=== PATIENT | female | born 1945 | race Caucasian/White ===

== ENCOUNTER 2016-08-17 11:51 | Observation (INO) | payer MEDICARE ==
[2016-08-17] MEDS ORDERED: Aspirin Low Dose CHEW TAB* 81 MG PO ONE (12:29)
[2016-08-17 12:47] LABS: Hematocrit 34 % (35-47); Hemoglobin 11.6 g/dl (12.0-16.0); Mean Corpuscular HGB Conc 34 g/dl (31-36); Mean Corpuscular Hemoglobin 28 pg (27-31); Mean Corpuscular Volume 83 fL (80-97); Mean Platelet Volume 8 um3 (7.4-10.4); Red Blood Count 4.14 10^6/ul (4.0-5.4); Red Cell Distribution Width 14 % (10.5-15); White Blood Count 8.6 10^3/ul (3.5-10.8)
--- NOTE | 2016-08-17 12:59 | RAD ---
HISTORY: Left arm numbness COMPARISONS: None TECHNIQUE: Multiple contiguous axial CT scans were obtained of the head without intravenous contrast. FINDINGS: HEMORRHAGE/INFARCT: There is no hemorrhage or acute infarct. MASSES/SHIFT: There is no mass or shift. EXTRA-AXIAL SPACES: There are no extra-axial fluid collections. SULCI AND VENTRICLES: The sulci and ventricles are normal in size and position for the patient's stated age. CEREBRUM: There is hypoattenuation of the periventricular and subcortical white matter. BRAINSTEM: There are no focal parenchymal abnormalities. CEREBELLUM: There are no focal parenchymal abnormalities. VESSELS: The vessels are grossly normal. PARANASAL SINUSES: The paranasal sinuses are clear. ORBITS: The orbits are unremarkable. BONES AND SOFT TISSUE: No bone or soft tissue abnormalities are noted. OTHER: None IMPRESSION: NO ACUTE INTRACRANIAL PATHOLOGY. CHRONIC SMALL VESSEL ISCHEMIC CHANGES.
[2016-08-17 13:00] LABS: Albumin 4.2 g/dL (3.2-5.2); BUN/Creatinine Ratio 18.9 (8-20); Calcium 9.6 mg/dL (8.6-10.3); EGFR African American 79.4 (>60); EGFR Non-African American 61.7 (>60); Globulin 3.4 g/dL (2-4); Total Bilirubin 0.3 mg/dL (0.2-1.0); Total Protein 7.6 g/dL (6.4-8.9)
[2016-08-17 13:01] LABS: Troponin I 0.01 ng/mL (<0.04)
[2016-08-17 13:05] LABS: Potassium 3.7 mmol/L (3.5-5.0)
--- NOTE | 2016-08-17 13:16 | RAD ---
HISTORY: Chest pain COMPARISONS: May 31, 2008 VIEWS: Single frontal dual-energy view of the chest FINDINGS: CARDIOMEDIASTINAL SILHOUETTE: The cardiomediastinal silhouette is normal. JOSE MARTIN: The jose martin are normal. PLEURA: The costophrenic angles are sharp. No pleural abnormalities are noted. LUNG PARENCHYMA: The lungs are clear. ABDOMEN: The upper abdomen is clear. There is no subphrenic gas. BONES AND SOFT TISSUES: No bone or soft tissue abnormalities are noted. OTHER: None. IMPRESSION: NO ACTIVE CARDIOPULMONARY DISEASE.
[2016-08-17] MEDS ORDERED: Iohexol 350* (CONTRAST) 500 ML MDV IV ONE (14:21)
--- NOTE | 2016-08-17 15:26 | RAD ---
HISTORY: Left arm weakness COMPARISONS: Head CT dated August 17, 2016 TECHNIQUE: Multiple contiguous axial CT scans were obtained of the head and neck After the administration of nonionic intravenous contrast timed to the systemic arterial phase of contrast enhancement. Coronal and sagittal multiplanar reformations are submitted for review. Multiple 3-D maximum intensity projection reconstructions are also submitted for review. FINDINGS: CTA NECK: AORTIC ARCH: There is calcific atherosclerotic disease of the aortic arch, without ostial or proximal stenosis of the cephalic great vessels. There is a normal three-vessel branching pattern. RIGHT VERTEBRAL ARTERY: The right vertebral artery is patent along its course, without stenosis. LEFT VERTEBRAL ARTERY: The left vertebral artery is patent along its course, without stenosis. DOMINANCE: The vertebral arteries are codominant. RIGHT COMMON CAROTID ARTERY: The right common carotid artery is patent. The right carotid bifurcation occurs at C4-C5 RIGHT INTERNAL CAROTID ARTERY: There is no right internal carotid artery stenosis by NASCET criteria. RIGHT EXTERNAL CAROTID ARTERY: The right external carotid artery is unremarkable. LEFT COMMON CAROTID ARTERY: The left common carotid artery is patent. The left carotid bifurcation occurs at C5-C6 LEFT INTERNAL CAROTID ARTERY: There is no left internal carotid artery stenosis by NASCET criteria. LEFT EXTERNAL CAROTID ARTERY: The left external carotid artery is unremarkable. VENOUS CIRCULATION: The venous system is unremarkable. SALIVARY GLANDS: The parotid glands, submandibular glands, sublingual glands are normal. NASAL CAVITY/NASOPHARYNX: The nasal cavity and nasopharynx are normal. ORAL CAVITY/OROPHARYNX: The oral cavity and oropharynx are unremarkable. LARYNGEAL APPARATUS/HYPOPHARYNX: The laryngeal apparatus and hypopharynx are normal. UPPER AIRWAY/UPPER ESOPHAGUS: The visualized upper airway and esophagus are normal. LUNG APICES: The lung apices are clear. THYROID GLAND: The thyroid gland is heterogeneous LYMPH NODES: There is no lymphadenopathy by size criteria. BONES AND SOFT TISSUES: Degenerative changes are noted along the spine. CTA HEAD: INTRACRANIAL CIRCULATION: There is no aneurysm, vascular malformation, occlusion, or stenosis of the visualized intracranial circulation. The anterior communicating artery complex is clear. Bilateral posterior communicating arteries are identified. VENOUS CIRCULATION: The venous system is unremarkable. PERFUSION: There is no obvious parenchymal perfusion deficit. HEMORRHAGE/INFARCT: There is no hemorrhage or acute infarct. MASSES/SHIFT: There is no mass or shift. EXTRA-AXIAL SPACES: There are no extra-axial fluid collections. SULCI AND VENTRICLES: The sulci and ventricles are normal in size and position for the patient's stated age. CEREBRUM: There are no focal parenchymal abnormalities. BRAINSTEM: There are no focal parenchymal abnormalities. CEREBELLUM: There are no focal parenchymal abnormalities. PARANASAL SINUSES: The paranasal sinuses are clear. ORBITS: The orbits are unremarkable. BONES AND SOFT TISSUE: No bone or soft tissue abnormalities are noted. OTHER: There is no abnormal enhancement. IMPRESSION: 1. NO INTERNAL CAROTID ARTERY STENOSIS BY NASCET CRITERIA 2. NO ANEURYSM, VASCULAR MALFORMATION, OCCLUSION, OR STENOSIS OF THE VISUALIZED INTRACRANIAL CIRCULATION. CPT II Codes: 3100F
--- NOTE | 2016-08-17 15:55 | ED ---
Danny Kelley Anna, scribed for Bean Whitt MD on 08/17/16 at 1216 . HPI Chest Pain - HPI Summary HPI Summary: Patient is a 71 y/o female coming to [facility] presenting with chest pain that began at 0830 this morning. She describes the pain as chest heaviness. She felt nauseous and lightheaded with some left arm pain and increased urinary frequency this morning. She said the symptoms felt similar to when her blood pressure is elevated, but her blood pressure felt normal. She additionally has SOB, left arm weakness, and dizziness. Her left arm had one episode of numbness , followed by a cramping pain that was resolved in the ambulance. The arm now feels "tingly" from the elbow up to her shoulder. She had 324 mg [employer]. For the last few nights, her left leg has been cramping, which is alleviated by lying still. 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 - Accompanied by granddaughter and great-granddaughter Pain Intensity: 6 Pain Scale Used: 0-10 Numeric - Allergy/Home Medications Allergies/Adverse Reactions: Allergies Allergy/AdvReac Type Severity Reaction Status Date / Time No Known Allergies Allergy Verified 08/17/16 12:22 PMH/Surg Hx/FS Hx/Imm Hx Endocrine/Hematology History: Denies: Hx Anticoagulant Therapy, Hx Diabetes, Hx Thyroid Disease Cardiovascular History: Reports: Hx Hypertension Denies: Hx Pacemaker/ICD Respiratory History: Denies: Hx Asthma, Hx Chronic Obstructive Pulmonary Disease (COPD) History: Denies: Hx Renal Disease Musculoskeletal History: Reports: Other Musculoskeletal History - LOW BACK PAIN , PAIN IN RT LEG AND HIP, INTERMITTENT LEFT Neurological History: Denies: Hx Dementia, Hx Seizures Psychiatric History: Denies: Hx Panic Disorder, Hx Substance Abuse - Cancer History Hx Chemotherapy: No Hx Radiation Therapy: No - Surgical History Surgery Procedure, Year, and Place: CATARACTS REMOVED,TUBAL LIGATION, APPENDECTOMY Infectious Disease History: No Infectious Disease History: Reports: Hx Tuberculosis Denies: Hx Hepatitis, Hx Human Immunodeficiency Virus (HIV), Traveled Outside the [place] in Last 30 Days - Family History Known Family History: Positive: Hypertension, Diabetes - Social History Lives: With Family - Takes care of great-granddaughter during the day Substance Use Type: Reports: None Hx Tobacco Use: No Smoking Status (MU): Never Smoked Tobacco Do You Chew or Dip Tobacco: No Review of Systems Positive: Chest Pain Positive: Shortness Of Breath Positive: frequency Positive: Arthralgia Neurological: Other - lightheadedness, dizziness Positive: Weakness, Paresthesia, Numbness All Other Systems Reviewed And Are Negative: Yes Physical Exam Triage Information Reviewed: Yes Vital Signs On Initial Exam: Initial Vitals Temp Pulse Resp BP Pulse Ox 99.4 F 86 16 163/68 98 08/17/16 11:54 08/17/16 11:54 08/17/16 11:54 08/17/16 11:54 08/17/16 11:54 Vital Signs Reviewed: Yes Appearance: Positive: Well-Appearing, No Pain Distress Skin: Positive: Warm, Skin Color Reflects Adequate Perfusion, Dry Head/Face: Positive: Normal Head/Face Inspection Eyes: Positive: Normal ENT: Positive: Normal ENT inspection Neck: Positive: Supple, Nontender Respiratory/Lung Sounds: Positive: Clear to Auscultation, Breath Sounds Present Cardiovascular: Positive: RRR Abdomen Description: Positive: Nontender, Soft Bowel Sounds: Positive: Present Musculoskeletal: Positive: Normal Neurological: Positive: Normal Psychiatric: Positive: Affect/Mood Appropriate Diagnostics - Vital Signs Vital Signs Temp Pulse Resp BP Pulse Ox 08/17/16 11:54 99.4 F 86 16 163/68 98 - Laboratory Lab Results: Lab Results 08/17/16 08/17/16 08/17/16 Range/Units 12:06 12:06 12:06 WBC 8.6 (3.5-10.8) 10^3/ul RBC 4.14 (4.0-5.4) 10^6/ul Hgb 11.6 L (12.0-16.0) g/dl Hct 34 L (35-47) % MCV 83 (80-97) fL MCH 28 (27-31) pg MCHC 34 (31-36) g/dl RDW 14 (10.5-15) % Plt Count 299 (150-450) 10^3/ul MPV 8 (7.4-10.4) um3 Neut % (Auto) 67.1 (38-83) % Lymph % (Auto) 23.4 L (25-47) % [place] % (Auto) 8.1 (1-9) % Eos % (Auto) 0.8 (0-6) % Baso % (Auto) 0.6 (0-2) % Absolute Neuts (auto) 5.7 (1.5-7.7) 10^3/ul Absolute Lymphs (auto) 2.0 (1.0-4.8) 10^3/ul Absolute Monos (auto) 0.7 (0-0.8) 10^3/ul Absolute Eos (auto) 0.1 (0-0.6) 10^3/ul Absolute Basos (auto) 0.1 (0-0.2) 10^3/ul Absolute Nucleated RBC 0 10^3/ul Nucleated RBC % 0 Sodium 136 (133-145) mmol/L Potassium 3.7 (3.5-5.0) mmol/L Chloride 100 L (101-111) mmol/L Carbon Dioxide 24 (22-32) mmol/L Anion Gap 12 H (2-11) mmol/L BUN 17 (6-24) mg/dL Creatinine 0.90 (0.51-0.95) mg/dL Est GFR ( Amer) 79.4 (>60) Est GFR (Non-Af Amer) 61.7 (>60) BUN/Creatinine Ratio 18.9 (8-20) Glucose 162 H (70-100) mg/dL Lactic Acid 2.0 (0.5-2.0) mmol/L Calcium 9.6 (8.6-10.3) mg/dL Total Bilirubin 0.30 (0.2-1.0) mg/dL AST 22 (13-39) U/L ALT 23 (7-52) U/L Alkaline Phosphatase 70 (34-104) U/L Troponin I 0.01 (<0.04) ng/mL Total Protein 7.6 (6.4-8.9) g/dL Albumin 4.2 (3.2-5.2) g/dL Globulin 3.4 (2-4) g/dL Albumin/Globulin Ratio 1.2 (1-3) Result Diagrams: 08/17/16 12:06 08/17/16 12:06 Lab Statement: Any lab studies that have been ordered have been reviewed, and results considered in the medical decision making process. - Radiology CXR Xray Interpretation: No Acute Changes Radiology Interpretation Completed By: Radiologist - IMPRESSION: NO ACTIVE CARDIOPULMONARY DISEASE. - CT Brain CT CT Interpretation: No Acute Changes CT Interpretation Completed By: Radiologist - IMPRESSION: NO ACUTE INTRACRANIAL PATHOLOGY. CHRONIC SMALL VESSEL ISCHEMIC CHANGES. Head CTA CT Interpretation: No Acute Changes CT Interpretation Completed By: Radiologist - IMPRESSION: 1. NO INTERNAL CAROTID ARTERY STENOSIS BY NASCET CRITERIA 2. NO ANEURYSM, VASCULAR MALFORMATION, OCCLUSION, OR STENOSIS OF THE VISUALIZED INTRACRANIAL CIRCULATION. - EKG 1203 Cardiac Rate: NL - 81 bpm EKG Rhythm: Sinus Rhythm ST Segment: Normal Ectopy: None Chest Pain Course/Dx - Course Course Of Treatment: Ms. Perdomo presented about 4 hours after a combination chest pain/left arm weakness. Aracelis pain had resolved and her weakness improved. She had good color and pulses in the arm and I was less concerned about dissection and more worried that this was a TIA/CVA. A radicular problem was also a consideration. - Diagnoses Provider Diagnoses: TIA (transient ischemic attack) - Provider Notifications Discussed Care Of Patient With: Dr. Gusman (neurology) at 1234. He will come see the patient. Dr. Gusman (neurology) at 1539. He recomnmends patient should be admitted. Dr. Mojica (hospitalist) at 1541. Agrees to accept patient for admission. - Critical Care Time Critical Care Time: 30-74 min Discharge - Discharge Plan Condition: Stable Disposition: ADMITTED TO [facility] Referrals: Kimberly Neumann MD [Primary Care Provider] - The documentation as recorded by the Danny roche Anna accurately reflects the service I personally performed and the decisions made by , Bean Whitt MD.
[2016-08-17] MEDS ORDERED: amLODIPine TAB* 5 MG PO ONE (16:34)
--- NOTE | 2016-08-17 17:33 | CONS ---
CONSULTATION NOTE: DATE OF CONSULT: 08/17/16 PATIENT OF: Dr. Bueno. HISTORY OF PRESENT ILLNESS: This is a 71-year-old right-handed woman who I am asked to consult on for new onset of left-sided weakness that lasted hours earlier today and then resolved completely. 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 It felt like her arm was not there. She is not certain, but feels like her left leg when she was walking was not working well. She was not sure when these symptoms began. It was first noticed when she went to seed cone picker her daughter. These symptoms lasted a few hours and then resolved completely. She also had a feeling of chest tightness in her left upper chest along with some nausea. She has some chronic left shoulder pain, but this is unchanged. She has never had any stroke. She has been on aspirin and has a baby aspirin a day , but missed 3 or 4 doses when she ran out. She has high blood pressure. PAST MEDICAL HISTORY: She has had no prior stroke. No hypercholesterolemia. She notes that she has rapid heart rate very frequently that seems to be more when she goes up and down stairs, but can occur even at rest. She does not smoke, drink, or use drugs. MEDICATIONS: She is on: 1. Norvasc 5 mg daily. 2. Lisinopril 40 mg daily. 3. Hydrochlorothiazide 12.5 mg daily. FAMILY HISTORY: Her mother apparently had stroke. REVIEW OF SYSTEMS: In all 14 spheres is negative other than the HPI. PHYSICAL EXAM: Temperature 99.4, pulse 79, respirations 15, blood pressure 163/ 68. She was alert and oriented with normal speech and comprehension. Cranial nerves II through XII are intact. Fundi showed sharp discs. Motor exam revealed normal tone, strength. Negative pronator drift, although she did have some left shoulder pain. Normal tone and strength. Normal sensation. Reflexes were 1. Chest: Clear. Cardiovascular: Regular rate and rhythm. Abdomen: Soft with positive bowel sounds. Normal speech and comprehension. DIAGNOSTIC STUDIES/LAB DATA: Her CTA was negative and was reviewed. Her head CT scan showed no acute findings and some small vessel chronic ischemic changes. She had a normal CBC other than hematocrit of 34. She had normal CMP other than glucose of 162. IMPRESSION: Mary has a global weakness to left arm associated with numbness and possibly to left leg weakness. This most likely represented a transient ischemic attack. We should get an MRI scan to assess fully the extent of her small vessel ischemic disease and also see if she has had any acute findings from this. It is possible that she had a small stroke, but this is less likely. I am concerned that she has symptoms suggestive of an irregular heart rate and she will need to be monitored. If we do not find any source for her stroke on echo, then she should be monitored at home to make sure she does not have atrial fibrillation, which would mean that she would be on anticoagulation rather than aspirin. Thank you for sharing her case. [id number]/[facility] #: [id number] CAMRYN
[2016-08-17] MEDS: Acetaminophen TAB* 325 MG PO PRN (18:31)
--- NOTE | 2016-08-17 21:13 | HP ---
HISTORY AND PHYSICAL: DATE OF ADMISSION: 08/17/16 TIME OF EVALUATION: 4:15 p.m. PRIMARY CARE PROVIDER: Dr. Neumann. CONSULTING NEUROLOGIST: Dr. Gusman. CHIEF COMPLAINT: "My left arm was weird." HISTORY OF PRESENT ILLNESS: Ms. Perdomo is a 71-year-old lady with past medical history of hypertension, morbid obesity, who presented to the emergency room this morning after she had a strange sensation to her left arm. She states she woke up on her usual state of health and she was taking care of her great granddaughter around 9 in the morning and she went to pick up attendant her granddaughter and she described a sensation as if her "left arm was not there." She put her great granddaughter back on the crib and she had this sensation that her left arm was in pins and needles. This progressed with left shoulder pain, left-sided chest pressure, and some shortness of breath. She denies facial weakness, change in her speech. She states over the past week, she has noted that her left leg is a little weaker but she associated that with arthritis and she has been favoring her right leg since. She denies headache, nausea, vomiting, diaphoresis. She takes aspirin for primary prevention but has missed the dose for the past 4 days. At this time in the emergency room, her symptoms have resolved. PAST MEDICAL HISTORY: 1. Hypertension. 2. Morbid obesity. 3. Osteoarthritis. MEDICATION LIST: 1. Amlodipine 5 mg p.o. daily. 2. Aspirin 81 mg p.o. daily. 3. Vitamin D 400 units p.o. daily. 4. Hydrochlorothiazide 12.5 mg p.o. daily. 5. Lisinopril 40 mg p.o. daily. ALLERGIES: No known drug allergies. FAMILY HISTORY: She states she has a very strong family history of diabetes. Her mother had a heart arrhythmia that required a pacemaker. SOCIAL HISTORY: The patient was smoker from age 18 to 30, half a pack a day. She occasionally drinks alcohol and she used medical marijuana in the past, but does not use it anymore. REVIEW OF SYSTEMS: A 14-point review of systems was performed and all the pertinent negative and positive findings are in the HPI. PHYSICAL EXAMINATION GENERAL: The patient is a pleasant, elderly, obese lady, sitting up in the ED stretcher, in no acute distress. VITAL SIGNS: Temperature 99.4, heart rate is 84, respiratory rate is 21, oxygen saturation 97% on room air, and blood pressure is 191/91. HEENT: Pupils are equal, reactive to light. Moist mucous membranes. Face is symmetric. Cranial nerves II through XII are grossly intact. NECK: Supple. I did not hear any carotid bruits. CHEST: Breath sounds present bilaterally with no added sounds. CVS: Normal S1, S2. Regular rate and rhythm. ABDOMEN: Soft, nontender, nondistended, obese. Bowel sounds are present. EXTREMITIES: No edema. NEURO: She is alert, awake, and oriented x3 with fluent speech. She has power 5/5 on all 4 extremities. DIAGNOSTIC STUDIES/LAB DATA: CBC showed WBC of 8.6, hemoglobin of 11.6, hematocrit of 34, platelets of 299 with 67% neutrophils. Chemistry showed a sodium of 146, potassium of 3.7, chloride of 100, bicarb of 24, BUN of 17, creatinine of 0.9, glucose of 162, lactic acid of 2, calcium of 9.6. LFTs are normal. Troponin was 0.01 x2 so far. Hepatitis C antibody was nonreactive. Chest x-ray showed no active cardiopulmonary disease. CT of the brain showed no acute intracranial pathology, chronic small vessel ischemic changes. CT of the head and neck showed no internal carotid artery stenosis, no aneurysm , vascular malformation, occlusion, or stenosis of the visualized intracranial circulation. EKG done on August 17 at 12:03 showed sinus rhythm at 81 beats per minute with T inversion in III. No significant change from her prior EKG from 2012. ASSESSMENT AND PLAN: Ms. Perdomo is a 71-year-old lady with a past medical history of hypertension, morbid obesity that presented to the emergency room with complaints with left arm numbness and tingling associated with left shoulder pain and left-sided chest pressure. 1. Left arm numbness. The patient's hypertension is chronically uncontrolled as she states her usual blood pressure is around 160/70, but in the emergency room, it is higher now at 191/90, so I questioned if her symptoms are secondary to hypertensive urgency. At this point, I am going to continue her antihypertensives and monitor her blood pressure. Her symptoms suggest a transient ischemic attack with left arm numbness, but I believe her left leg weakness is probably associated with her knee arthritis. She will be admitted to telemetry floor as observation. We are going to check a lipid profile, hemoglobin A1c, and she will have an echocardiogram. She was already seen in consultation by Neurology by Dr. Gusman and he recommended switching her aspirin to a full-dose aspirin at this point. Her symptoms also could suggest a cardiac etiology especially with a left shoulder pain and left-sided chest pressure. Her EKG shows no ischemic changes and troponins are negative so far. If her blood pressure is better controlled by tomorrow and acute coronary syndrome is ruled out, I believe the patient could have a pharmacological stress test. 2. Hypertension. We will give an extra dose of amlodipine at this point and continue lisinopril and amlodipine. She may need a higher dose of amlodipine on a standing basis or even addition of a third agent. 3. DVT prophylaxis. The patient has a score of 3 on the DVT Prophylaxis Risk Assessment Guide and she will be started on subcutaneous heparin. 4. Code status is full. TIME SPENT: Approximately 45 minutes was spent with the patient interview, medical records review, physical examination to complete the admission; more than half of this time was spent [id number] with the patient in coordination of care. CC: Dr. Neumann; Dr. Gusman* [id number]/[facility] #: [id number] [facility] HOSPITALAmna
[2016-08-17] MEDS: Heparin VIAL(*) 5000 UNITS/ML VIAL (FIVE THOUSAND) SUBCUT SCH (21:26)
[2016-08-18] MEDS: Heparin VIAL(*) 5000 UNITS/ML VIAL (FIVE THOUSAND) SUBCUT SCH ×2 (05:33→14:00)
[2016-08-18 05:47] LABS: HDL Cholesterol 40.4 mg/dL
[2016-08-18] MEDS: Acetaminophen TAB* 325 MG PO PRN (08:41)
[2016-08-18] MEDS ORDERED: amLODIPine TAB* 5 MG PO SCH (09:00)
[2016-08-18] MEDS ORDERED: Lisinopril TAB* 10 MG PO SCH (09:00)
[2016-08-18] MEDS ORDERED: Hydrochlorothiazide TAB* 25 MG PO SCH (09:00)
[2016-08-18] MEDS ORDERED: Aspirin EC TAB* 325 MG PO SCH (09:00)
[2016-08-18] MEDS ORDERED: Cholecalciferol TAB* 400 UNIT PO SCH (09:00)
[2016-08-18 09:16] LABS: Troponin I 0.01 ng/mL (<0.04)
--- NOTE | 2016-08-18 09:30 | PN ---
Subjective Date of Service: 08/18/16 Interval History: Pt is feeling well. She states she has mild L arm discomfort but it is her usual arthritis pain. She state the numbness/pin-needles feeling lasted for a couple hours yesterday, went away on its own and has not recurred. Objective Active Medications: Acetaminophen (Tylenol Tab*) 650 mg PO Q6H PRN PRN Reason: pain/fever Last Admin: 08/18/16 08:41 Dose: 650 mg Amlodipine Besylate (Norvasc Tab*) 5 mg PO DAILY [facility] Last Admin: 08/18/16 08:41 Dose: 5 mg Aspirin (Ecotrin Ec Tab*) 325 mg PO DAILY [facility] Last Admin: 08/18/16 08:42 Dose: 325 mg Atorvastatin Calcium (Lipitor*) 40 mg PO 2100 [facility] Cholecalciferol (Vitamin D Tab*) 400 unit PO DAILY [facility] Last Admin: 08/18/16 08:42 Dose: 400 unit Heparin Sodium (Porcine) (Heparin Vial(*)) 5,000 units SUBCUT Q8HR [facility] Last Admin: 08/18/16 05:33 Dose: 5,000 units Hydrochlorothiazide (Hydrodiuril Tab*) 12.5 mg PO DAILY [facility] Last Admin: 08/18/16 08:42 Dose: 12.5 mg Lisinopril (Prinivil Tab*) 40 mg PO DAILY [facility] Last Admin: 08/18/16 08:41 Dose: 40 mg Vital Signs 08/17/16 08/17/16 08/17/16 16:00 16:05 16:30 Temperature Pulse Rate 81 82 84 Respiratory 21 Rate Blood Pressure 191/91 (mmHg) O2 Sat by Pulse 97 96 97 Oximetry 08/17/16 08/17/16 08/17/16 16:57 17:00 17:01 Temperature Pulse Rate Respiratory 20 41 Rate Blood Pressure 174/71 (mmHg) O2 Sat by Pulse Oximetry 08/17/16 08/17/16 08/17/16 17:08 17:17 17:19 Temperature 98.4 F 98.0 F Pulse Rate 95 93 90 Respiratory 20 16 16 Rate Blood Pressure 180/76 174/71 (mmHg) O2 Sat by Pulse 95 97 Oximetry 08/17/16 08/17/16 08/18/16 19:15 23:49 03:36 Temperature 98.8 F 97.9 F 97.9 F Pulse Rate 84 79 80 Respiratory 18 20 16 Rate Blood Pressure 128/61 117/56 145/63 (mmHg) O2 Sat by Pulse 97 97 96 Oximetry 08/18/16 07:15 Temperature 98.0 F Pulse Rate 80 Respiratory 16 Rate Blood Pressure 146/78 (mmHg) O2 Sat by Pulse 96 Oximetry Oxygen Devices in Use Now: None Appearance: Elderly female sitting up in bed, NAD Eyes: No Scleral Icterus Ears/Nose/Mouth/Throat: Mucous Membranes Moist Respiratory: Symmetrical Chest Expansion and Respiratory Effort, Clear to Auscultation Cardiovascular: NL Sounds; No Murmurs; No JVD, RRR, No Edema Abdominal: NL Sounds; No Tenderness; No Distention Extremities: No Clubbing, Cyanosis Skin: No Rash or Ulcers, No Nodules or Sclerosis Neurological: Alert and Oriented x 3 Result Diagrams: 08/17/16 12:06 08/17/16 12:06 Additional Lab and Data: Lab Results 08/17/16 08/17/16 08/17/16 Range/Units 12:06 12:06 12:06 WBC 8.6 (3.5-10.8) 10^3/ul RBC 4.14 (4.0-5.4) 10^6/ul Hgb 11.6 L (12.0-16.0) g/dl Hct 34 L (35-47) % MCV 83 (80-97) fL MCH 28 (27-31) pg MCHC 34 (31-36) g/dl RDW 14 (10.5-15) % Plt Count 299 (150-450) 10^3/ul MPV 8 (7.4-10.4) um3 Neut % (Auto) 67.1 (38-83) % Lymph % (Auto) 23.4 L (25-47) % [place] % (Auto) 8.1 (1-9) % Eos % (Auto) 0.8 (0-6) % Baso % (Auto) 0.6 (0-2) % Absolute Neuts (auto) 5.7 (1.5-7.7) 10^3/ul Absolute Lymphs (auto) 2.0 (1.0-4.8) 10^3/ul Absolute Monos (auto) 0.7 (0-0.8) 10^3/ul Absolute Eos (auto) 0.1 (0-0.6) 10^3/ul Absolute Basos (auto) 0.1 (0-0.2) 10^3/ul Absolute Nucleated RBC 0 10^3/ul Nucleated RBC % 0 Sodium 136 (133-145) mmol/L Potassium 3.7 (3.5-5.0) mmol/L Chloride 100 L (101-111) mmol/L Carbon Dioxide 24 (22-32) mmol/L Anion Gap 12 H (2-11) mmol/L BUN 17 (6-24) mg/dL Creatinine 0.90 (0.51-0.95) mg/dL Est GFR ( Amer) 79.4 (>60) Est GFR (Non-Af Amer) 61.7 (>60) BUN/Creatinine Ratio 18.9 (8-20) Glucose 162 H (70-100) mg/dL Lactic Acid 2.0 (0.5-2.0) mmol/L Calcium 9.6 (8.6-10.3) mg/dL Total Bilirubin 0.30 (0.2-1.0) mg/dL AST 22 (13-39) U/L ALT 23 (7-52) U/L Alkaline Phosphatase 70 (34-104) U/L Troponin I 0.01 (<0.04) ng/mL Total Protein 7.6 (6.4-8.9) g/dL Albumin 4.2 (3.2-5.2) g/dL Globulin 3.4 (2-4) g/dL Albumin/Globulin Ratio 1.2 (1-3) Assess/Plan/Problems-Billing Ms Perdomo is a 71 yo F who has a h/o HTN, OA and obesity who presented to the ER with c/o L arm numbness/tingling. - Patient Problems (1) TIA (transient ischemic attack) Current Visit: Yes Status: Acute Comment: The patient's symptoms are most likely secondary to TIA. Her symptoms have resolved. MRI negative for acute CVA. Continue full dose ASA. Start lipitor 40mg po qHS. She will need a 30 day holter monitor to eval for afib. Anginal equivalent was considered on admission but seems unlikely. Outpatient stress test can be considered. (2) HTN (hypertension) Current Visit: Yes Status: Acute Code(s): I10 - ESSENTIAL (PRIMARY) HYPERTENSION SNOMED Code(s): 11565784 Comment: BP is under good control on her home medication regimen. ? marked HTN in ER secondary to TIA. (3) HLD (hyperlipidemia) Current Visit: Yes Status: Acute Code(s): E78.5 - HYPERLIPIDEMIA, UNSPECIFIED SNOMED Code(s): 44316827 Comment: Start lipitor 40mg daily. (4) DVT prophylaxis Current Visit: Yes Status: Acute Code(s): XHH3454 - SNOMED Code(s): 936608612 Comment: SQ heparin (5) Full code status Current Visit: Yes Status: Acute Code(s): Z78.9 - OTHER SPECIFIED HEALTH STATUS SNOMED Code(s): 713376069 Status and Disposition: d/c home
[2016-08-18 12:19] VITALS: BP 130/61
--- NOTE | 2016-08-18 13:18 | RAD ---
HISTORY: Left arm numbness COMPARISONS: None TECHNIQUE: The following sequences were obtained of the head: Sagittal T1-weighted images, axial T2-weighted images, axial FLAIR images, axial susceptibility weighted images, axial T1-weighted images. Additionally, axial diffusion-weighted images were obtained with calculated apparent diffusion coefficients. FINDINGS: HEMORRHAGE/INFARCT: There is no hemorrhage or acute infarct. MASSES/SHIFT: There is no mass or shift. EXTRA-AXIAL SPACES/MENINGES: There are no extra-axial fluid collections. SULCI AND VENTRICLES: The sulci and ventricles are normal in size and position for the patient's stated age. CEREBRUM: There are multiple scattered small foci of elevated T2/FLAIR signal within the periventricular and subcortical white matter. There is more focal elevated T2/FLAIR signal along the right precentral gyrus on axial image 23 measuring 1.5 cm in size BRAINSTEM: There are no focal parenchymal abnormalities. CEREBELLUM: There are no focal parenchymal abnormalities. The cerebellar tonsils are normal in size and position. SELLA: The sella is normal. PINEAL: The pineal region is clear. CP ANGLE/TEMPORAL BONES: The labyrinthine structures are grossly normal. VESSELS: Normal flow-voids are noted within the visualized vertebral vasculature. DIFFUSION ABNORMALITIES: There are no diffusion abnormalities. PARANASAL SINUSES/MASTOIDS: The paranasal sinuses are clear. ORBITS: The orbits are unremarkable. BONES AND SOFT TISSUE: No bone or soft tissue abnormalities are noted. OTHER: None IMPRESSION: 1. THERE IS MULTIFOCAL ELEVATED T2/FLAIR SIGNAL IN THE PERIVENTRICULAR AND SUBCORTICAL WHITE MATTER. THE APPEARANCE IS NONSPECIFIC, BUT IS SUGGESTIVE OF CHRONIC SMALL VESSEL ISCHEMIA. 2. THERE IS MORE FOCAL CONFLUENT AREA OF ELEVATED T2/FLAIR SIGNAL WITHIN THE RIGHT PRECENTRAL GYRUS. WHILE THIS MAY ALSO REPRESENT CHRONIC SMALL VESSEL ISCHEMIC CHANGE, GIVEN THE LOCALIZATION TO THE SYMPTOMATIC REGION OF THE BRAIN IN THE MORE FOCAL NATURE OF THIS LESION, RECOMMEND FURTHER EVALUATION WITH POSTCONTRAST ENHANCED MRI OF THE BRAIN TO EXCLUDE UNDERLYING PARENCHYMAL PATHOLOGY INCLUDING A SMALL FOCUS OF NEOPLASM VERSUS INFLAMMATORY CHANGE. 3. THERE IS NO RESTRICTED DIFFUSION TO SUGGEST ACUTE INFARCT
--- NOTE | 2016-08-18 13:47 | PN ---
Objective Active Medications: Acetaminophen (Tylenol Tab*) 650 mg PO Q6H PRN PRN Reason: pain/fever Last Admin: 08/18/16 08:41 Dose: 650 mg Amlodipine Besylate (Norvasc Tab*) 5 mg PO DAILY [facility] Last Admin: 08/18/16 08:41 Dose: 5 mg Aspirin (Ecotrin Ec Tab*) 325 mg PO DAILY [facility] Last Admin: 08/18/16 08:42 Dose: 325 mg Atorvastatin Calcium (Lipitor*) 40 mg PO 2100 [facility] Cholecalciferol (Vitamin D Tab*) 400 unit PO DAILY [facility] Last Admin: 08/18/16 08:42 Dose: 400 unit Heparin Sodium (Porcine) (Heparin Vial(*)) 5,000 units SUBCUT Q8HR [facility] Last Admin: 08/18/16 05:33 Dose: 5,000 units Hydrochlorothiazide (Hydrodiuril Tab*) 12.5 mg PO DAILY [facility] Last Admin: 08/18/16 08:42 Dose: 12.5 mg Lisinopril (Prinivil Tab*) 40 mg PO DAILY [facility] Last Admin: 08/18/16 08:41 Dose: 40 mg Vital Signs 08/17/16 08/17/16 08/17/16 16:00 16:05 16:30 Temperature Pulse Rate 81 82 84 Respiratory 21 Rate Blood Pressure 191/91 (mmHg) O2 Sat by Pulse 97 96 97 Oximetry 08/17/16 08/17/16 08/17/16 16:57 17:00 17:01 Temperature Pulse Rate Respiratory 20 41 Rate Blood Pressure 174/71 (mmHg) O2 Sat by Pulse Oximetry 08/17/16 08/17/16 08/17/16 17:08 17:17 17:19 Temperature 98.4 F 98.0 F Pulse Rate 95 93 90 Respiratory 20 16 16 Rate Blood Pressure 180/76 174/71 (mmHg) O2 Sat by Pulse 95 97 Oximetry 08/17/16 08/17/16 08/18/16 19:15 23:49 03:36 Temperature 98.8 F 97.9 F 97.9 F Pulse Rate 84 79 80 Respiratory 18 20 16 Rate Blood Pressure 128/61 117/56 145/63 (mmHg) O2 Sat by Pulse 97 97 96 Oximetry 08/18/16 08/18/16 07:15 11:26 Temperature 98.0 F 97.9 F Pulse Rate 80 79 Respiratory 16 22 Rate Blood Pressure 146/78 130/61 (mmHg) O2 Sat by Pulse 96 96 Oximetry Result Diagrams: 08/17/16 12:06 08/17/16 12:06 Additional Lab and Data: Lab Results 08/17/16 08/17/16 08/17/16 Range/Units 12:06 12:06 12:06 WBC 8.6 (3.5-10.8) 10^3/ul RBC 4.14 (4.0-5.4) 10^6/ul Hgb 11.6 L (12.0-16.0) g/dl Hct 34 L (35-47) % MCV 83 (80-97) fL MCH 28 (27-31) pg MCHC 34 (31-36) g/dl RDW 14 (10.5-15) % Plt Count 299 (150-450) 10^3/ul MPV 8 (7.4-10.4) um3 Neut % (Auto) 67.1 (38-83) % Lymph % (Auto) 23.4 L (25-47) % [place] % (Auto) 8.1 (1-9) % Eos % (Auto) 0.8 (0-6) % Baso % (Auto) 0.6 (0-2) % Absolute Neuts (auto) 5.7 (1.5-7.7) 10^3/ul Absolute Lymphs (auto) 2.0 (1.0-4.8) 10^3/ul Absolute Monos (auto) 0.7 (0-0.8) 10^3/ul Absolute Eos (auto) 0.1 (0-0.6) 10^3/ul Absolute Basos (auto) 0.1 (0-0.2) 10^3/ul Absolute Nucleated RBC 0 10^3/ul Nucleated RBC % 0 Sodium 136 (133-145) mmol/L Potassium 3.7 (3.5-5.0) mmol/L Chloride 100 L (101-111) mmol/L Carbon Dioxide 24 (22-32) mmol/L Anion Gap 12 H (2-11) mmol/L BUN 17 (6-24) mg/dL Creatinine 0.90 (0.51-0.95) mg/dL Est GFR ( Amer) 79.4 (>60) Est GFR (Non-Af Amer) 61.7 (>60) BUN/Creatinine Ratio 18.9 (8-20) Glucose 162 H (70-100) mg/dL Lactic Acid 2.0 (0.5-2.0) mmol/L Calcium 9.6 (8.6-10.3) mg/dL Total Bilirubin 0.30 (0.2-1.0) mg/dL AST 22 (13-39) U/L ALT 23 (7-52) U/L Alkaline Phosphatase 70 (34-104) U/L Troponin I 0.01 (<0.04) ng/mL Total Protein 7.6 (6.4-8.9) g/dL Albumin 4.2 (3.2-5.2) g/dL Globulin 3.4 (2-4) g/dL Albumin/Globulin Ratio 1.2 (1-3) Assess/Plan/Problems-Billing Assessment:
--- NOTE | 2016-08-18 15:50 | ECHO ---
Patient: LASHANDA NASCIMENTO [facility] Rec#: [id number] : 1945 Date: 08/18/2016 Age: 71y Height: 149.9 cm / 59.0 in Weight: 90.7 kg / 199.9 lbs Sex: F BSA: 1.8 Room#: 439 Admit Date#: 08/17/2016 Type: Inpatient Referring: Salina Adler MD Reading: Sherie Sauceda MD [employer] Instructor: Stephanie Braxton RN RDCS CC: SEAN MARIE Transthoracic Echocardiogram Indication: TIA BP: 145/63 HR: 73 Rhythm: NSR Findings History: HTN, morbid obesity, former smoker, osteoarthritis Technical Comments: The study is technically limited due to patient body habitus. The study is technically limited due to the patient's smoking history. Completed at 1440. Left Ventricle: The left ventricular chamber size is normal. Mild concentric left ventricular hypertrophy is observed. Global left ventricular wall motion and contractility are within normal limits. The left ventricle appears hyperdynamic. The estimated ejection fraction is greater than 65%. Abnormal left ventricular diastolic filling is observed, consistent with impaired relaxation. Left Atrium: The left atrial chamber size is normal. Right Ventricle: The right ventricular cavity size is normal. The right ventricular global systolic function is low normal. Right Atrium: The right atrial cavity size is normal. Interatrial septum appears intact without evidence of shunting. There is no patent foramen ovale visualized. The bubble study is negative. Aortic Valve: The aortic valve is trileaflet. The aortic valve leaflets are mildly thickened. There is no evidence of aortic regurgitation. There is no evidence of aortic stenosis. Mitral Valve: The mitral valve leaflets are mildly thickened. There is trace to mild mitral regurgitation. There is no evidence of mitral stenosis. Tricuspid Valve: The tricuspid valve leaflets are normal. There is trace tricuspid regurgitation. Unable to estimate the right ventricular systolic pressure. Pulmonic Valve: The pulmonic valve appears normal. There is no evidence of pulmonic regurgitation. There is no pulmonic stenosis. Pericardium: There is no significant pericardial effusion. A pericardial fat pad is visualized. Aorta: There is no dilatation of the ascending aorta. There is no dilatation of the aortic arch. There is no dilation of the aortic root. Pulmonary Artery: The main pulmonary artery is not well visualized. Venous: The venous system is not well visualized. The inferior vena cava is not visualized. Contrast: Normal saline was used as contrast for the bubble study. Image 81. Conclusions Mild concentric left ventricular hypertrophy is observed. The left ventricle appears hyperdynamic with normal wall motion. The estimated ejection fraction is greater than 65%. Abnormal left ventricular diastolic filling is observed, consistent with impaired relaxation. The right ventricular global systolic function is low normal based on apical views. Interatrial septum appears intact without evidence of shunting, the bubble study is negative. The aortic valve leaflets are mildly thickened with normal function. There is trace to mild mitral regurgitation. There is trace tricuspid regurgitation. Compared with prior echo of 04/10/2004, no significant changes. Measurements Name Value Normal Range RVDdMajor (2D) 3.4 cm (2.2 - 4.4) RAd ISD 4CH 4.2 cm (3.4 - 4.9) RA (A4C)W 3.3 cm (2.9 - 4.6) IVSd (2D) 1.1 cm (0.6 - 1) LVPWd (2D) 1.1 cm (0.6 - 1) LVIDd (2D) 4.2 cm (3.6 - 5.4) LVIDs (2D) 2.6 cm - LV FS (2D) 38 % (25 - 45) Aortic Annulus 1.9 cm (1.4 - 2.6) Ao root diameter (2D) 2.5 cm (2.1 - 3.5) Ascending Ao 3.2 cm (2.1 - 3.4) Aortic arch 2.5 cm (1.8 - 3.4) LA dimension (AP) 2D 3.2 cm (2.3 - 3.8) LAd ISD 4CH 4.5 cm (2.9 - 5.3) LA ISD 4CH W 3.6 cm (2.5 - 4.5) Name Value Normal Range LA ESV SP 4CH (A/L) 46 ml - LA ESV SP 2CH (A/L) 42 ml - LA ESV BP (A/L) 45 ml - LA ESV BP (A/L) index 24.2 ml/m2 - LA ESV SP 4CH (MOD) 44 ml - LA ESV SP 2CH (MOD) 39 ml - Name Value Normal Range MV E-wave Vmax 0.69 m/sec - MV deceleration time 223 msec - MV A-wave Vmax 0.97 m/sec - MV E:A ratio 0.7 ratio - LV septal e' Vmax 0.06 m/sec - LV lateral e' Vmax 0.06 m/sec - LV E:e' septal ratio 11.5 ratio - LV E:e' lateral ratio 11.5 ratio - Name Value Normal Range AV Vmax 1.5 m/sec - LVOT Vmax 1.2 m/sec - ROSALBA Vmax 0.75 m/sec - Name Value Normal Range PV Vmax 0.89 m/sec -
[2016-08-18] MEDS ORDERED: Atorvastatin* 40 MG TAB PO SCH (21:00)
--- NOTE | 2016-08-19 00:11 | PN ---
PROGRESS NOTE: DATE OF SERVICE: DATE OF DICTATION: 08/18/16 - ROOM #439 PATIENT OF: Dr. Pearce. HISTORY: A 71-year-old woman status post left-sided weakness moving her arms and legs yesterday. She feels back to normal ever since the few-hour episode yesterday. Has no headaches. She has some left shoulder pain, but this has been a chronic problem for her. MEDICATIONS: Aspirin daily, her antihypertensives as before, she is now on Lipitor 40 mg a day. PHYSICAL EXAMINATION: Temperature 97.9, pulse 75, respirations 22, blood pressure 130/61. She is alert and oriented with normal speech and comprehension. Cranial nerves II through XII are intact. Motor exam revealed normal tone and strength, [id number]. Sensation intact to light touch. Reflexes 1 and equal. Chest: Clear. Cardiovascular: Regular rate and rhythm. Abdomen: Soft with positive bowel sounds. DIAGNOSTIC STUDIES/LAB DATA: Her MRI scan was reviewed and has not been read yet, but to my eye did not see any acute stroke. What is posted in imaging, looks like it is a limited study full range. Her LDL was elevated at 118. The CMP was normal from yesterday. Her hematocrit was 34 from yesterday. Hepatitis C negative. Her echo has just been done. IMPRESSION AND PLAN: Mary a transient ischemic attack yesterday. She has episodes of heart racing that occur relatively frequently especially when she walks up and down steps. It would make sense for her to be monitored to make sure she does not have atrial fibrillation. If her symptoms are occurring frequently enough, it would be reasonable to perhaps do a 30-day monitor and have her do some steps during this to see if we can capture an event. For now, however, she would be on the aspirin and Lipitor and can go home later today if her echo is negative and there are no further complications. [id number]/[facility] #: [id number] [facility]PITALAmna
== END 2016-08-18 17:40 | disposition home or self-care (01) ==
LOC: ED 11:51 → MEDTELE 15:39
PROVIDERS: ADMIT Internal Medicine; ATTEND Hospitalist
DX: R20.0 Anesthesia of skin (principal); R07.9 Chest pain, unspecified; R06.02 Shortness of breath; I10 Essential (primary) hypertension; E66.01 Morbid (severe) obesity due to excess calories; I51.7 Cardiomegaly; M19.90 Unspecified osteoarthritis, unspecified site; Z79.899 Other long term (current) drug therapy; Z79.82 Long term (current) use of aspirin; Z87.891 Personal history of nicotine dependence
CPT/HCPCS: 36415; 70450; 70496; 70498; 70551; 71010; 80053; 80061; 83036; 83605; 84484; 85025; 86803; 93005; 93306; 96372; 99291; A9270-GY; G0378; J1644; Q9967

== ENCOUNTER 2016-12-26 07:27 | Emergency (ER) | payer MEDICARE ==
[2016-12-26] MEDS ORDERED: Ketorolac INJ* 30 MG/ML 1 ML VIAL IV PUSH ONE (07:41)
[2016-12-26 08:01] LABS: Hematocrit 33 % (35-47); Mean Corpuscular HGB Conc 33 g/dl (31-36); Mean Corpuscular Hemoglobin 27 pg (27-31); Mean Corpuscular Volume 82 fL (80-97); Mean Platelet Volume 8 um3 (7.4-10.4); Red Blood Count 4.05 10^6/ul (4.0-5.4); Red Cell Distribution Width 15 % (10.5-15); White Blood Count 7.5 10^3/ul (3.5-10.8)
[2016-12-26 08:14] LABS: Albumin 3.8 g/dL (3.2-5.2); BUN/Creatinine Ratio 22.6 (8-20); Calcium 8.9 mg/dL (8.6-10.3); EGFR Non-African American 66.8 (>60); Globulin 3.5 g/dL (2-4); Total Protein 7.3 g/dL (6.4-8.9)
[2016-12-26 08:15] LABS: C Reactive Protein 5.22 mg/L (< 5.00); Total Bilirubin 0.4 mg/dL (0.2-1.0)
--- NOTE | 2016-12-26 08:46 | RAD ---
Indication: Chronic back pain. Numbness in the LEFT ankle. Comparison: March 13, 2012 MRI. Technique: AP and lateral views lumbar sacral spine. Report: Grade 2 degenerative appearing L4-L5 and L5-S1 anterolisthesis is increased over the 2012 MRI. Multilevel degenerative spondylosis. Disc space narrowing is severe at L4-L5 and L5-S1 with interval worsening. Multilevel facet joint osteoarthritis most marked at L3-L4 through L5-S1. No fracture evident. Atherosclerotic calcification of the abdominal aorta. Unremarkable paraspinal soft tissue contours. Rounded opacity in the RIGHT paraspinal region at the RIGHT upper quadrant likely correlates with gallstones given finding of calcified stones on July 03, 2012 CT. IMPRESSION: Significant interval worsening of multilevel degenerative spondylosis and posterior element osteoarthritis with associated anterolisthesis at L4-L5 and L5-S1 as described.
--- NOTE | 2016-12-26 08:55 | RAD ---
INDICATION: LEFT calf tender to touch. COMPARISON: No relevant prior exams available on the [facility] PACS for comparison. TECHNIQUE: [place] scale, color Doppler, and spectral analysis of the deep veins of the LEFT lower extremity. Vessel compression, phasicity, and augmentation assessed. REPORT: The LEFT common femoral, great saphenous, profunda femoral, femoral, and popliteal veins are patent. One of the paired posterior tibial and one of the paired peroneal veins demonstrates gross occlusive DVT. The remaining posterior tibial and peroneal veins are patent. Additionally there is an occluded intramuscular vein at the proximal LEFT calf. Patency of the RIGHT common femoral vein documented. IMPRESSION: LEFT lower extremity infrageniculate deep venous thrombosis involving 1 posterior tibial vein, 1 peroneal vein, and an intramuscular vein branch.
[2016-12-26 09:28] LABS: Potassium 4.4 mmol/L (3.5-5.0)
[2016-12-26 09:43] VITALS: BP 186/88
--- NOTE | 2016-12-26 10:04 | ED ---
Yumiko Kelley Alfonso, scribed for Jose Maria Lobato MD on 12/26/16 at 0744 . Lower Extremity - HPI Summary HPI Summary: This patient is a 71 year old F presenting to [facility] with a chief complaint of LLE pain since yesterday morning. The CC is described as burning and numbness from the knee down. The patient rates the pain 4/10 in severity. Symptoms aggravated and alleviated by nothing. She is able to ambulate. She denies known injury. Denies PMHx of DM. PMHx of chronic low back pain, arthritis, and HTN. - History of Current Complaint Chief Complaint: EDExtremityLower Stated Complaint: LEFT ANKLE PAIN Time Seen by Provider: 12/26/16 07:33 Hx Obtained From: Patient Onset of Pain: Days - Yesterday morning, Prior to Arrival Onset/Duration: Days - Yesterday morning Severity Initially: Moderate Severity Currently: Moderate Pain Intensity: 4 Pain Scale Used: 0-10 Numeric Timing: Constant Location: Is Discrete @ - LLE from the knee down. Character Of Pain: Burning - and numbness Associated Signs And Symptoms: Positive: Negative Aggravating Factor(s): Nothing Alleviating Factor(s): Nothing Able to Bear Weight: Yes - She is able to ambulate - Allergies/Home Medications Allergies/Adverse Reactions: Allergies Allergy/AdvReac Type Severity Reaction Status Date / Time No Known Allergies Allergy Verified 12/26/16 07:57 PMH/Surg Hx/FS Hx/Imm Hx Endocrine/Hematology History: Denies: Hx Anticoagulant Therapy, Hx Diabetes, Hx Thyroid Disease Cardiovascular History: Reports: Hx Hypertension Denies: Hx Pacemaker/ICD Respiratory History: Denies: Hx Asthma, Hx Chronic Obstructive Pulmonary Disease (COPD) History: Reports: Hx Kidney Stones Denies: Hx Renal Disease Musculoskeletal History: Reports: Hx Arthritis, Other Musculoskeletal History - LOW BACK PAIN, PAIN IN RT LEG AND HIP, INTERMITTENT LEFT Sensory History: Denies: Hx Contacts or Glasses, Hx Hearing Aid Opthamlomology History: Denies: Hx Contacts or Glasses Neurological History: Reports: Hx Migraine - 20 years ago Denies: Hx Dementia, Hx Seizures Psychiatric History: Denies: Hx Panic Disorder, Hx Substance Abuse - Cancer History Hx Chemotherapy: No Hx Radiation Therapy: No - Surgical History Surgery Procedure, Year, and Place: CATARACTS REMOVED,TUBAL LIGATION, APPENDECTOMY Infectious Disease History: Reports: Hx Tuberculosis Denies: Hx Hepatitis, Hx Human Immunodeficiency Virus (HIV), Traveled Outside the [place] in Last 30 Days - Family History Known Family History: Positive: Hypertension, Diabetes - Social History Alcohol Use: None Substance Use Type: Reports: None Hx Tobacco Use: No Smoking Status (MU): Never Smoked Tobacco Review of Systems Negative: Fever Positive: Other - Positive LLE pain from the knee down. All Other Systems Reviewed And Are Negative: Yes Physical Exam - Summary Physical Exam Summary: VITAL SIGNS: Reviewed. GENERAL: Patient is a well-developed and nourished female who is lying comfortable in the stretcher. Patient is not in any acute respiratory distress. HEAD AND FACE: No signs of trauma. No ecchymosis, hematomas or skull depressions. No sinus tenderness. EYES: PERRLA, EOMI x 2, No injected conjunctiva, no nystagmus. EARS: Hearing grossly intact. Ear canals and tympanic membranes are within normal limits. MOUTH: Oropharynx within normal limits. NECK: Supple, trachea is midline, no adenopathy, no JVD, no carotid bruit, no c- spine tenderness, neck with full ROM. CHEST: Symmetric, no tenderness at palpation LUNGS: Clear to auscultation bilaterally. No wheezing or crackles. CVS: Regular rate and rhythm, S1 and S2 present, no murmurs or gallops appreciated. ABDOMEN: Soft, non-tender. No signs of distention. No rebound no guarding, and no masses palpated. Bowel sounds are normal. EXTREMITIES: FROM in all major joints, no edema, no cyanosis or clubbing. NEURO: Alert and oriented x 3. No acute neurological deficits. Speech is normal and follows commands. SKIN: Dry and warm. Triage Information Reviewed: Yes Vital Signs On Initial Exam: Initial Vitals Temp Pulse Resp BP Pulse Ox 97.3 F 79 20 185/89 97 12/26/16 07:29 12/26/16 07:29 12/26/16 07:29 12/26/16 07:29 12/26/16 07:29 Vital Signs Reviewed: Yes Diagnostics - Vital Signs Vital Signs Temp Pulse Resp BP Pulse Ox 12/26/16 07:29 97.3 F 79 20 185/89 97 - Laboratory Lab Results: Lab Results 08/06/17 08/06/17 08/06/17 Range/Units 07:50 07:50 09:10 WBC 7.5 (3.5-10.8) 10^3/ul RBC 4.05 (4.0-5.4) 10^6/ul Hgb 11.0 L (12.0-16.0) g/dl Hct 33 L (35-47) % MCV 82 (80-97) fL MCH 27 (27-31) pg MCHC 33 (31-36) g/dl RDW 15 (10.5-15) % Plt Count 292 (150-450) 10^3/ul MPV 8 (7.4-10.4) um3 Neut % (Auto) 67.9 (38-83) % Lymph % (Auto) 21.2 L (25-47) % [place] % (Auto) 8.8 (1-9) % Eos % (Auto) 1.1 (0-6) % Baso % (Auto) 1.0 (0-2) % Absolute Neuts (auto) 5.1 (1.5-7.7) 10^3/ul Absolute Lymphs (auto) 1.6 (1.0-4.8) 10^3/ul Absolute Monos (auto) 0.7 (0-0.8) 10^3/ul Absolute Eos (auto) 0.1 (0-0.6) 10^3/ul Absolute Basos (auto) 0.1 (0-0.2) 10^3/ul Absolute Nucleated RBC 0 10^3/ul Nucleated RBC % 0 INR (Anticoag Therapy) 0.90 (0.89-1.11) APTT 28.8 (26.0-36.3) seconds Sodium 133 (133-145) mmol/L Potassium 4.4 (3.5-5.0) mmol/L Chloride 102 (101-111) mmol/L Carbon Dioxide 23 (22-32) mmol/L Anion Gap 8 (2-11) mmol/L BUN 19 (6-24) mg/dL Creatinine 0.84 (0.51-0.95) mg/dL Est GFR ( Amer) 86.0 (>60) Est GFR (Non-Af Amer) 66.8 (>60) BUN/Creatinine Ratio 22.6 H (8-20) Glucose 191 H (70-100) mg/dL Calcium 8.9 (8.6-10.3) mg/dL Total Bilirubin 0.40 (0.2-1.0) mg/dL AST 24 (13-39) U/L ALT 19 (7-52) U/L Alkaline Phosphatase 60 (34-104) U/L C-Reactive Protein 5.22 H (< 5.00) mg/L Total Protein 7.3 (6.4-8.9) g/dL Albumin 3.8 (3.2-5.2) g/dL Globulin 3.5 (2-4) g/dL Albumin/Globulin Ratio 1.1 (1-3) Result Diagrams: 12/26/16 07:50 12/26/16 07:50 Lab Statement: Any lab studies that have been ordered have been reviewed, and results considered in the medical decision making process. - Radiology Lumbar Spine X-Ray Radiology Interpretation Completed By: Radiologist - Significant interval worsening of multilevel degenerative spondylosis and posterior element osteoarthritis with associated anterolisthesis at L4-L5 and L5-S1 as described. VL lower ext veins left Radiology Interpretation Completed By: Radiologist - LEFT lower extremity infrageniculate deep venous thrombosis involving 1 posterior tibial vein, 1 peroneal vein, and an intramuscular vein branch. - EKG 0910 Cardiac Rate: NL - BPM 63 EKG Rhythm: Sinus Rhythm EKG Interpretation: No ST elevation Re-Evaluation - Re-Evaluation First Eval Re-Evaluation Time: 09:11 Change: Unchanged Comment: Reviewed lab and imaging results with patient. Also discussed plan for discharge and PCP follow up. She was informed to not procced with her plan for a new tattoo. Patient understands and agrees. Lower Extremity Course/Dx - Course Course Of Treatment: This patient is a 71 year old F presenting to [facility] with a chief complaint of LLE pain since yesterday morning. The CC is described as burning and numbness from the knee down. The patient rates the pain 4/10 in severity. Symptoms aggravated and alleviated by nothing. She is able to ambulate. She denies known injury. Denies PMHx of DM. PMHx of chronic low back pain, arthritis, and HTN. Assessment/Plan: Blood results without any significant abnormalities. VL lower ext veins left reveals LEFT lower extremity infrageniculate deep venous thrombosis involving 1 posterior tibial vein, 1 peroneal vein, and an intramuscular vein branch. Lumbar spine x-ray reveals Significant interval worsening of multilevel degenerative spondylosis and posterior element osteoarthritis with associated anterolisthesis at L4-L5 and L5-S1 as described. An EKG reveals NSR and no ST elevation. In the ED course, the patient was given Toradol for the pain, before knowledge of patient having a DVT. She will be started on and Eliquis for the DVT. Patient was given bleeding precautions. Patient is hemodynamically stable and alert and oriented to person, place, and time. She was aked not to tkae any NSAIDS. I discussed all the findings and test results with the patient. Patient was instructed to return to the emergency room immediately if any of the symptoms return or worsens. Plan of care was discussed with the patient and understands and agrees. All questions were answered at patient satisfaction. There were no further complaints or concerns. Lung exam before discharge: CTA B/L. Good air exchange. No wheezing or crackles heard. CVS: S1 and S2 present. No murmurs appreciated. Patient is alert and oriented x 3. Patient is hemodynamically stable. Patient will be discharged home with follow up PCP in the next 2-3 days - Diagnoses Differential Diagnosis/HQI/PQRI: Positive: Bursitis, Contusion, DVT, Phlebitis, Sprain, Strain Provider Diagnoses: DVT (deep venous thrombosis) Discharge - Discharge Plan Condition: Stable Disposition: HOME Prescriptions: Apixaban* [Eliquis*] 10 mg PO BID #20 tab Patient Education Materials: Deep Venous Thrombosis (ED) Referrals: Kimberly Neumnan MD [Primary Care Provider] - 3 Days The documentation as recorded by the Yumiko roche Alfonso accurately reflects the service I personally performed and the decisions made by me, Jose Maria Lobato MD.
[2016-12-26] MEDS ORDERED: Apixaban* 5 MG TAB PO ONE (21:00)
--- NOTE | 2016-12-26 21:15 | ED ---
Progress - Progress Note Progress Note: Receivd call from pt, can't afford medication for DVT (eliquis), just moved here from [place], has medicare but no prescription coverage. I did refer her to a couple of safety instructor's 1-800 numbers for their coupon programs (one for 30 day free trial, one for $10 copay per month). Instructed her to return to hospital tomorrow afternoon if unable to secure medication in affordable fashion. I did send script for Jarred to her pharmacy in case their prescription coupon plan will better serve her financial needs. Re-Evaluation - Re-Evaluation First Eval Re-Evaluation Time: 09:11 Change: Unchanged Comment: Reviewed lab and imaging results with patient. Also discussed plan for discharge and PCP follow up. She was informed to not procced with her plan for a new tattoo. Patient understands and agrees. Course/Dx - Course Course Of Treatment: This patient is a 71 year old F presenting to [facility] with a chief complaint of LLE pain since yesterday morning. The CC is described as burning and numbness from the knee down. The patient rates the pain 4/10 in severity. Symptoms aggravated and alleviated by nothing. She is able to ambulate. She denies known injury. Denies PMHx of DM. PMHx of chronic low back pain, arthritis, and HTN. - Diagnoses Provider Diagnoses: DVT (deep venous thrombosis)
== END 2016-12-26 09:42 | disposition home or self-care (01) ==
LOC: ED 07:27
DX: I82.4Z2 Acute embolism and thrombosis of unspecified deep veins of left distal lower extremity (principal); M25.572 Pain in left ankle and joints of left foot; M54.9 Dorsalgia, unspecified
CPT/HCPCS: 36415; 72100; 80053; 85025; 85610; 85730; 86140; 93005; 96374; 99282; J1885

== ENCOUNTER 2016-12-30 17:13 | Emergency (ER) | payer MEDICARE ==
[2016-12-30] MEDS ORDERED: Ondansetron INJ* 2 MG/ML VIAL IV ONE (18:07)
[2016-12-30] MEDS ORDERED: NS 0.9% 1000 ML* 1,000 ML IV ONE (18:07)
[2016-12-30] MEDS ORDERED: Morphine INJ* 4 MG/ML 1 ML SYRINGE IV ONE (18:07)
--- NOTE | 2016-12-30 19:11 | RAD ---
HISTORY: Left lower extremity pain and edema Comparison: Similar examination dated December 26, 2016 TECHNIQUE: Multiple transverse and longitudinal ultrasound images were obtained of the veins of the left lower extremity using grayscale, color Doppler, and spectral Doppler imaging with and without compression and with augmentation. FINDINGS: VEINS: The common femoral vein, deep femoral vein, femoral vein and popliteal vein are compressible throughout their course, with normal flow on color Doppler imaging and normal response to augmentation on spectral Doppler imaging. There is persistent occlusive thrombus in the more anterior of the tear left peroneal veins. At the proximal calf there is a superficial vein that exhibits no color flow or compressibility. IMPRESSION: 1. No femoral-popliteal deep vein thrombosis. 2. Persistent occlusion of the more anterior peroneal vein as well as a superficial vein at the proximal calf. The appearance has not changed since the December 26, 2016 left leg DVT study.
[2016-12-30 19:42] LABS: Hematocrit 33 % (35-47); Hemoglobin 10.5 g/dl (12.0-16.0); Mean Corpuscular HGB Conc 32 g/dl (31-36); Mean Corpuscular Hemoglobin 27 pg (27-31); Mean Corpuscular Volume 83 fL (80-97); Mean Platelet Volume 8 um3 (7.4-10.4); Red Blood Count 3.93 10^6/ul (4.0-5.4); Red Cell Distribution Width 15 % (10.5-15); White Blood Count 9.3 10^3/ul (3.5-10.8)
[2016-12-30] MEDS ORDERED: traMADol TAB* 50 MG PO ONE (19:47)
[2016-12-30 19:56] LABS: Albumin 3.9 g/dL (3.2-5.2); BUN/Creatinine Ratio 21.8 (8-20); C Reactive Protein 3.87 mg/L (< 5.00); Calcium 9.1 mg/dL (8.6-10.3); EGFR African American 82.5 (>60); EGFR Non-African American 64.2 (>60); Globulin 3.1 g/dL (2-4); Potassium 3.4 mmol/L (3.5-5.0); Total Bilirubin 0.4 mg/dL (0.2-1.0)
[2016-12-30] MEDS ORDERED: Iohexol 350* (CONTRAST) 500 ML MDV IV ONE (20:11)
--- NOTE | 2016-12-30 22:01 | RAD ---
INDICATION: Chest pain and shortness of breath in a patient with DVT COMPARISON: None TECHNIQUE: Axial source images were acquired following the administration of 77 mL Omnipaque [address] angiographic technique. Coronal and sagittal reconstructed images were constructed and reviewed. FINDINGS: There there are no filling defects in the pulmonary arteries to indicate acute pulmonary embolic disease. There are mild scattered groundglass density without focal infiltrates or effusions. There are no pulmonary parenchymal masses. There is mild cardiomegaly. There is no evidence of pericardial effusion. There is no evidence of aortic aneurysm or dissection. There is no mediastinal, hilar, or axillary lymphadenopathy. There are multilevel degenerative changes of the thoracic spine and anterior marginal bridging osteophytes. There is a small to moderate size hiatal hernia. Hyperdense gallstones are noted in the dependent portion of the gallbladder. IMPRESSION: 1. No CT of evidence of pulmonary embolism. 2. Mild cardiomegaly and faint scattered groundglass density could be seen in the setting of congestive heart failure. 3. Additional chronic findings described in the body the report.
[2016-12-30 23:01] VITALS: BP 182/83
--- NOTE | 2016-12-31 01:21 | ED ---
Maria Antonia Kelley SooYoung, scribed for Jose Gold MD on 12/30/16 at 1750 . Lower Extremity - HPI Summary HPI Summary: A 71 y/o F BIBA presents to ED with c/o groin pain radiating bilaterally down legs. Pt has known DVTs, she states there is 1 above R knee, and 4 below K knee , dx four days ago. Associated sx: R foot tingling and numbness; lightheadedness. she states having mild CP onset 1400 that spontaneously resolved, which she believes may have been GERD. 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 Pt is on Eloquist, started three days ago. Nonsmoker. No PMHx of DVT. Hasn't seen a PCP in 2 years. - History of Current Complaint Chief Complaint: EDExtremityLower Stated Complaint: PAIN LT LEG Time Seen by Provider: 12/30/16 17:41 Hx Obtained From: Patient Onset of Pain: Prior to Arrival Severity Currently: Severe Pain Intensity: 9 Pain Scale Used: 0-10 Numeric Associated Signs And Symptoms: Positive: Other - see HPI - Allergies/Home Medications Allergies/Adverse Reactions: Allergies Allergy/AdvReac Type Severity Reaction Status Date / Time No Known Allergies Allergy Verified 12/26/16 07:57 PMH/Surg Hx/FS Hx/Imm Hx Previously Healthy: No Endocrine/Hematology History: Denies: Hx Anticoagulant Therapy, Hx Diabetes, Hx Thyroid Disease Cardiovascular History: Reports: Hx Hypertension Denies: Hx Pacemaker/ICD Respiratory History: Denies: Hx Asthma, Hx Chronic Obstructive Pulmonary Disease (COPD) History: Reports: Hx Kidney Stones Denies: Hx Renal Disease Musculoskeletal History: Reports: Hx Arthritis, Other Musculoskeletal History - LOW BACK PAIN, PAIN IN RT LEG AND HIP, INTERMITTENT LEFT Sensory History: Denies: Hx Contacts or Glasses, Hx Hearing Aid Opthamlomology History: Denies: Hx Contacts or Glasses Neurological History: Reports: Hx Migraine - 20 years ago Denies: Hx Dementia, Hx Seizures Psychiatric History: Denies: Hx Panic Disorder, Hx Substance Abuse - Cancer History Hx Chemotherapy: No Hx Radiation Therapy: No - Surgical History Surgery Procedure, Year, and Place: CATARACTS REMOVED,TUBAL LIGATION, APPENDECTOMY Infectious Disease History: No Infectious Disease History: Reports: Hx Tuberculosis Denies: Hx Hepatitis, Hx Human Immunodeficiency Virus (HIV), Traveled Outside the [place] in Last 30 Days - Family History Known Family History: Positive: Hypertension, Diabetes - Social History Occupation: Retired Lives: Alone Alcohol Use: None Substance Use Type: Reports: None Hx Tobacco Use: No Smoking Status (MU): Never Smoked Tobacco Review of Systems Positive: Chest Pain - mild, resolved TOOL MECHANIC Positive: Shortness Of Breath - mild, resolved TOOL MECHANIC Negative: Abdominal Pain Positive: pain - groin radiating to LE Positive: Other - pos: R foot numbness and tingling. Negative: Edema Neurological: Other - pos: lightheadedness All Other Systems Reviewed And Are Negative: Yes Physical Exam - Summary Physical Exam Summary: 1A: Mild anxious. HENT nml. Neck/lung. Abd: obese, soft, nontender. Tenderniess in L thigh. Good pulses in both feet. Calf tenderness in L. FROM. The patient is well-nourished in no acute distress and in no acute pain. The skin is warm and dry and skin color reflects adequate perfusion. HEENT: The head is normocephalic and atraumatic. The pupils are equal and reactive. The conjunctivae are clear and without drainage. Nares are patent and without drainage. Mouth reveals moist mucous membranes and the throat is without erythema and exudate. The external ears are intact. The ear canals are patent and without drainage. The tympanic membranes are intact. Neck is supple with full range of motion and non-tender. There are no carotid bruits. There is no neck vein distension. Respiratory: Chest is non-tender. Lungs are clear to auscultation and breath sounds are symmetrical and equal. Cardiovascular: Hear is regular rate and rhythm. There is no murmur or rub auscultated. There is no peripheral edema and pulses are symmetrical and equal. Abdomen: The abdomen is soft and non-tender. There are normal bowel sounds heard in all four quadrants and there is no organomegaly palpated. Musculoskeletal: There is no back pain noted. Extremities are non-tender with full range of motion. There is good capillary refill. There is no peripheral edema or calf tenderness elicited. Neurological: Patient is alert and oriented to person, place and time. The patient has symmetrical motor strength in all four extremities. Cranial nerves are grossly intact. Deep tendon reflexes are symmetrical and equal in all four extremities. Psychiatric: The patient has an appropriate affect and does not exhibit any anxiety or depression. Triage Information Reviewed: Yes Vital Signs On Initial Exam: Initial Vitals Temp Pulse Resp BP Pulse Ox 99.2 F 79 16 157/75 96 12/30/16 17:18 12/30/16 17:18 12/30/16 17:18 12/30/16 17:18 12/30/16 17:18 Vital Signs Reviewed: Yes - Sukumar Coma Scale Coma Scale Total: 15 Diagnostics - Vital Signs Vital Signs Temp Pulse Resp BP Pulse Ox 12/30/16 17:18 99.2 F 79 16 157/75 96 - Laboratory Lab Results: Lab Results 12/30/16 12/30/16 12/30/16 Range/Units 19:31 19:31 19:31 WBC 9.3 (3.5-10.8) 10^3/ul RBC 3.93 L (4.0-5.4) 10^6/ul Hgb 10.5 L (12.0-16.0) g/dl Hct 33 L (35-47) % MCV 83 (80-97) fL MCH 27 (27-31) pg MCHC 32 (31-36) g/dl RDW 15 (10.5-15) % Plt Count 272 (150-450) 10^3/ul MPV 8 (7.4-10.4) um3 Neut % (Auto) 60.7 (38-83) % Lymph % (Auto) 28.0 (25-47) % [place] % (Auto) 9.3 H (1-9) % Eos % (Auto) 1.0 (0-6) % Baso % (Auto) 1.0 (0-2) % Absolute Neuts (auto) 5.7 (1.5-7.7) 10^3/ul Absolute Lymphs (auto) 2.6 (1.0-4.8) 10^3/ul Absolute Monos (auto) 0.9 H (0-0.8) 10^3/ul Absolute Eos (auto) 0.1 (0-0.6) 10^3/ul Absolute Basos (auto) 0.1 (0-0.2) 10^3/ul Absolute Nucleated RBC 0 10^3/ul Nucleated RBC % 0 INR (Anticoag Therapy) 1.25 H (0.89-1.11) APTT 34.9 (26.0-36.3) seconds Sodium 135 (133-145) mmol/L Potassium 3.4 L (3.5-5.0) mmol/L Chloride 102 (101-111) mmol/L Carbon Dioxide 24 (22-32) mmol/L Anion Gap 9 (2-11) mmol/L BUN 19 (6-24) mg/dL Creatinine 0.87 (0.51-0.95) mg/dL Est GFR ( Amer) 82.5 (>60) Est GFR (Non-Af Amer) 64.2 (>60) BUN/Creatinine Ratio 21.8 H (8-20) Glucose 104 H (70-100) mg/dL Lactic Acid (0.5-2.0) mmol/L Calcium 9.1 (8.6-10.3) mg/dL Total Bilirubin 0.40 (0.2-1.0) mg/dL AST 16 (13-39) U/L ALT 17 (7-52) U/L Alkaline Phosphatase 60 (34-104) U/L C-Reactive Protein 3.87 (< 5.00) mg/L Total Protein 7.0 (6.4-8.9) g/dL Albumin 3.9 (3.2-5.2) g/dL Globulin 3.1 (2-4) g/dL Albumin/Globulin Ratio 1.3 (1-3) 12/30/16 Range/Units 19:31 WBC (3.5-10.8) 10^3/ul RBC (4.0-5.4) 10^6/ul Hgb (12.0-16.0) g/dl Hct (35-47) % MCV (80-97) fL MCH (27-31) pg MCHC (31-36) g/dl RDW (10.5-15) % Plt Count (150-450) 10^3/ul MPV (7.4-10.4) um3 Neut % (Auto) (38-83) % Lymph % (Auto) (25-47) % [place] % (Auto) (1-9) % Eos % (Auto) (0-6) % Baso % (Auto) (0-2) % Absolute Neuts (auto) (1.5-7.7) 10^3/ul Absolute Lymphs (auto) (1.0-4.8) 10^3/ul Absolute Monos (auto) (0-0.8) 10^3/ul Absolute Eos (auto) (0-0.6) 10^3/ul Absolute Basos (auto) (0-0.2) 10^3/ul Absolute Nucleated RBC 10^3/ul Nucleated RBC % INR (Anticoag Therapy) (0.89-1.11) APTT (26.0-36.3) seconds Sodium (133-145) mmol/L Potassium (3.5-5.0) mmol/L Chloride (101-111) mmol/L Carbon Dioxide (22-32) mmol/L Anion Gap (2-11) mmol/L BUN (6-24) mg/dL Creatinine (0.51-0.95) mg/dL Est GFR ( Amer) (>60) Est GFR (Non-Af Amer) (>60) BUN/Creatinine Ratio (8-20) Glucose (70-100) mg/dL Lactic Acid 1.0 (0.5-2.0) mmol/L Calcium (8.6-10.3) mg/dL Total Bilirubin (0.2-1.0) mg/dL AST (13-39) U/L ALT (7-52) U/L Alkaline Phosphatase (34-104) U/L C-Reactive Protein (< 5.00) mg/L Total Protein (6.4-8.9) g/dL Albumin (3.2-5.2) g/dL Globulin (2-4) g/dL Albumin/Globulin Ratio (1-3) Result Diagrams: 12/30/16 19:31 12/30/16 19:31 Lab Statement: Any lab studies that have been ordered have been reviewed, and results considered in the medical decision making process. - CT Chest/thorax CTA CT Interpretation: Positive (See Comments) CT Interpretation Completed By: Radiologist - IMPRESSION: 1. No CT of evidence of pulmonary embolism. 2. Mild cardiomegaly and faint scattered groundglass density could be seen in the setting of congestive heart failure. 3. Additional chronic findings described in the body the report. - Ultrasound No standard instances Ultrasound Interpretation: No Acute Changes - VENOUS DOPPLER. IMPRESSION: 1. No femoral-popliteal deep vein thrombosis. 2. Persistent occlusion of the more anterior peroneal vein as well as a superficial vein at the proximal calf. The appearance has not changed since the December 26, 2016 left leg DVT study. Ultrasound Interpretation Completed By: Radiologist Re-Evaluation - Re-Evaluation 1 Re-Evaluation Time: 19:42 Change: Unchanged Comment: Discussing U/S result with pt. 2 Re-Evaluation Time: 20:24 Change: Unchanged Comment: Discussing PCP and insurance, Rx cost with pt and family. Lower Extremity Course/Dx - Course Course Of Treatment: Pt is a 71 y/o F BIBA presenting with c/o groin pain radiating bilaterally down legs. Pt has known DVTs, she states there is 1 above R knee, and 4 below K knee, dx four days ago. Associated sx: R foot tingling and numbness; lightheadedness. she states having mild CP onset 1400 that spontaneously resolved, which she believes may have been GERD. 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 Pt is on Eloquist, started three days ago. Nonsmoker. No PMHx of DVT. Hasn't seen a PCP in 2 years. Pt given fluids, Tramadol in ED. Bloodwork is without any significant abnormalities. Venous Doppler U/S is unchanged from prev. Chest/thorax CT is "1. No CT of evidence of pulmonary embolism. 2. Mild cardiomegaly and faint scattered groundglass density could be seen in the setting of congestive heart failure. 3. Additional chronic findings described in the body the report." - Diagnoses Differential Diagnosis/HQI/PQRI: Positive: DVT, Other - pe Provider Diagnoses: DVT (deep venous thrombosis) Discharge - Discharge Plan Condition: Stable Disposition: HOME Patient Education Materials: Deep Venous Thrombosis (ED) Referrals: Kimberly Neumann MD [Primary Care Provider] - 2 Days Additional Instructions: A social media senior associate will call you tomorrow morning. Follow up with your primary care provider in two days. Please return to the ED for new or worsening symptoms. The documentation as recorded by the Maria Antonia roche SooYoung accurately reflects the service I personally performed and the decisions made by me, Jose Gold MD.
--- NOTE | 2016-12-31 10:28 | ED ---
Progress - Progress Note Progress Note: patient gets last dose of eliquis today, has no insurance coverage for scripts, gave aniline press worker's numbers for discount programs previously. Discussed with social work, they will call her Re-Evaluation - Re-Evaluation 1 Re-Evaluation Time: 19:42 Change: Unchanged Comment: Discussing U/S result with pt. 2 Re-Evaluation Time: 20:24 Change: Unchanged Comment: Discussing PCP and insurance, Rx cost with pt and family. Course/Dx - Course Course Of Treatment: Pt is a 71 y/o F BIBA presenting with c/o groin pain radiating bilaterally down legs. Pt has known DVTs, she states there is 1 above R knee, and 4 below K knee, dx four days ago. Associated sx: R foot tingling and numbness; lightheadedness. she states having mild CP onset 1400 that spontaneously resolved, which she believes may have been GERD. Additionally, pt had mild SOB en route but she believes that was due to anxiety, it also resolved [employer]. Denies pedal edema, abd pain. Pt is on Eloquist, started three days ago. Nonsmoker. No PMHx of DVT. Hasn't seen a PCP in 2 years. Pt given fluids, Tramadol in ED. Bloodwork is without any significant abnormalities. Venous Doppler U/S is unchanged from prev. Chest/thorax CT is "1. No CT of evidence of pulmonary embolism. 2. Mild cardiomegaly and faint scattered groundglass density could be seen in the setting of congestive heart failure. 3. Additional chronic findings described in the body the report." - Diagnoses Provider Diagnoses: DVT (deep venous thrombosis)
== END 2016-12-30 22:59 | disposition home or self-care (01) ==
LOC: ED 17:13
DX: I82.409 Acute embolism and thrombosis of unspecified deep veins of unspecified lower extremity (principal)
CPT/HCPCS: 36415; 71275; 80053; 83605; 85025; 85610; 85730; 86140; 96374; 96375; 99283; A9270-GY; J2270; J2405; Q9967

== ENCOUNTER 2017-09-18 19:24 | Emergency (ER) | payer MEDICARE, MEDICAID ==
[2017-09-18 22:17] VITALS: BP 148/72
--- NOTE | 2017-09-27 09:03 | ED ---
Saman Kelley Julia, scribed for Corby Cobian MD on 09/18/17 at 2109 . Lower Extremity - HPI Summary HPI Summary: This patient is a 72 year old F presenting to [facility] with a chief complaint of a LLE wound since 08/15/17. Pt bruised her leg on the tub and bruise has gradually opened and has not been healing. Patient reports burning pain that intermittently radiates into the foot. The patient rates the pain 9/10 in severity. Pain wakes her at night. She treats would with antibiotic ointment and covers with clean bandage daily. She keeps wound uncovered for a few hours each afternoon. Wound bleeds and seeps increased activity. PMHx of borderline DM. Pt is not taking medications to control blood glucose. - History of Current Complaint Chief Complaint: EDExtremityLower Stated Complaint: POSSIBLE INFECTION ON LT LEG Time Seen by Provider: 09/18/17 20:52 Hx Obtained From: Patient Onset/Duration: Still Present Pain Intensity: 9 Pain Scale Used: 0-10 Numeric Timing: Constant Location: Is Discrete @ - wound LLE Character Of Pain: Burning Aggravating Factor(s): Ambulation Able to Bear Weight: Yes - Allergies/Home Medications Allergies/Adverse Reactions: Allergies Allergy/AdvReac Type Severity Reaction Status Date / Time No Known Allergies Allergy Verified 09/18/17 19:37 PMH/Surg Hx/FS Hx/Imm Hx Endocrine/Hematology History: Reports: Hx Diabetes - borderline Denies: Hx Anticoagulant Therapy, Hx Thyroid Disease Cardiovascular History: Reports: Hx Hypertension Denies: Hx Pacemaker/ICD Respiratory History: Denies: Hx Asthma, Hx Chronic Obstructive Pulmonary Disease (COPD) History: Reports: Hx Kidney Stones Denies: Hx Renal Disease Musculoskeletal History: Reports: Hx Arthritis, Other Musculoskeletal History - LOW BACK PAIN, PAIN IN RT LEG AND HIP, INTERMITTENT LEFT Denies: Hx Osteoporosis Sensory History: Denies: Hx Contacts or Glasses, Hx Hearing Aid Opthamlomology History: Denies: Hx Contacts or Glasses Neurological History: Reports: Hx Migraine - 20 years ago, Other Neuro Impairments/Disorders - spondylosis Denies: Hx Dementia, Hx Seizures Psychiatric History: Denies: Hx Panic Disorder, Hx Substance Abuse - Cancer History Hx Chemotherapy: No Hx Radiation Therapy: No - Surgical History Surgery Procedure, Year, and Place: CATARACTS REMOVED,TUBAL LIGATION, APPENDECTOMY Infectious Disease History: Yes Infectious Disease History: Reports: Hx Tuberculosis Denies: Hx Hepatitis, Hx Human Immunodeficiency Virus (HIV), Traveled Outside the [place] in Last 30 Days - Family History Known Family History: Positive: Hypertension, Diabetes - Social History Alcohol Use: None Hx Substance Use: No Substance Use Type: Reports: Marijuana Hx Tobacco Use: No Smoking Status (MU): Former Smoker Review of Systems Negative: Fever, Chills Negative: Erythema Negative: Sore Throat Negative: Chest Pain Negative: Shortness Of Breath, Cough Negative: Abdominal Pain, Vomiting, Nausea Negative: dysuria, hematuria Positive: Myalgia - pain around wound LLE. Negative: Edema Positive: Other - wound LLE Neurological: Negative - dizzy All Other Systems Reviewed And Are Negative: Yes Physical Exam - Summary Physical Exam Summary: Constitutional: Well-developed, Well-nourished, Alert. (-) Distressed Skin: Warm, Dry HENT: Normocephalic; Atraumatic Eyes: Conjunctiva normal Neck: Musculoskeletal ROM normal neck. (-) JVD, (-) Stridor, (-) Tracheal deviation Cardio: Rhythm regular, rate normal, Heart sounds normal; Intact distal pulses; The pedal pulses are 2+ and symmetric. Radial pulses are 2+ and symmetric. (-) Murmur Pulmonary/Chest wall: Effort normal. (-) Respiratory distress, (-) Wheezes, (-) Rales Abd: Soft, (-) Tenderness, (-) Distension, (-) Guarding, (-) Rebound Musculoskeletal: (-) Edema, 4cm by 1cm wound which has intact scab mildly, that is tender to palp; no fluctuant no duration no surrounding erythema Lymph: (-) Cervical adenopathy Neuro: Alert, Oriented x3 Psych: Mood and affect Normal Triage Information Reviewed: Yes Vital Signs On Initial Exam: Initial Vitals Temp Pulse Resp BP Pulse Ox 98.6 F 90 18 153/103 93 09/18/17 19:33 09/18/17 19:33 09/18/17 19:33 09/18/17 19:33 09/18/17 19:33 Vital Signs Reviewed: Yes Diagnostics - Vital Signs Vital Signs Temp Pulse Resp BP Pulse Ox 09/18/17 19:33 98.6 F 90 18 153/103 93 - Laboratory Lab Results: Lab Results 09/18/17 Range/Units 21:53 POC Glucose (mg/dL) 151 H (70-100) mg/dL Lab Statement: Any lab studies that have been ordered have been reviewed, and results considered in the medical decision making process. Lower Extremity Course/Dx - Course Course Of Treatment: 72 year old F presenting with a chief complaint of a LLE wound since 08/15/17. Pt bruised her leg on the tub and bruise has gradually opened and has not been healing. P PMHx of borderline DM. There are no signs of cellulitis. No concern for necrotizing fasciitis. Wound is likely not healing due to DM. No signs for fracture. - Diagnoses Provider Diagnoses: Leg wound, left Discharge - Sign-Out/Discharge Documenting (check all that apply): Discharge/Admit/Transfer - Discharge Plan Condition: Stable Disposition: HOME Patient Education Materials: Chronic Wound Care (ED) Referrals: Isatu Lopez MD [Primary Care Provider] - Victor M Huber MD [Medical Doctor] - 2 Days (Follow up with Dr. Huber in two to three days, for a HEAD STRENGTH AND CONDITIONING COACH visit for wound care. ) Additional Instructions: RETURN TO THE EMERGENCY DEPARTMENT FOR CHANGING OR WORSENING SYMPTOMS. - Billing Disposition and Condition Condition: STABLE Disposition: HOME The documentation as recorded by the Saman roche Julia accurately reflects the service I personally performed and the decisions made by Aranza hector Jerry, MD.
== END 2017-09-18 22:16 | disposition home or self-care (01) ==
LOC: ED 19:24
DX: M79.1 Myalgia (principal); T14.8XXA Other injury of unspecified body region, initial encounter; Z87.891 Personal history of nicotine dependence; X58.XXXA Exposure to other specified factors, initial encounter; Y93.9 Activity, unspecified; Y92.9 Unspecified place or not applicable; Z86.79 Personal history of other diseases of the circulatory system
CPT/HCPCS: 99282

== ENCOUNTER 2018-04-05 07:29 | Observation (INO) | payer MEDICARE, MEDICAID ==
[2018-04-05] MEDS ORDERED: Ondansetron INJ* 2 MG/ML VIAL IV ONE (07:51)
[2018-04-05] MEDS ORDERED: NS 0.9% 1000 ML* 1,000 ML IV ONE ×4 (07:51→20:48)
--- NOTE | 2018-04-05 07:53 | ED ---
Dizziness - HPI Summary HPI Summary: A 73 y/o female brought in by ambulance presents to the ED c/o dizziness since waking up and going to the bathroom the morning of 04/05/2018. She called her daughter, claimed she was feeling dizzy, and her daughter suggested calling an ambulance. She states that she feels like the room is spinning. She also endorses nausea. She claims to have not felt similar symptoms in a long time. She denies PEREZ, visual changes, sore throat, ear pain, CP or palpitations. She states that at the time of the episode she may have had some SOB due to anxiety but is not currently feeling those symptoms. - History Of Current Complaint Chief Complaint: EDDizziness Stated Complaint: DIZZINESS Time Seen by Provider: 04/05/18 07:47 Hx Obtained From: Patient Onset/Duration: Still Present, Suddenly Severity Initially: Moderate Severity Currently: Moderate Character: Room Spinning Associated Signs And Symptoms: Positive: Nausea. Negative: Chest Pain - Allergies/Home Medications Allergies/Adverse Reactions: Allergies Allergy/AdvReac Type Severity Reaction Status Date / Time No Known Allergies Allergy Verified 09/18/17 19:37 Home Medications: Home Medications Acetaminophen [Tylenol Extra Strength] 2 tab PO Q8H PRN 04/05/18 [History Confirmed 04/05/18] Atorvastatin* [Lipitor 10 MG*] 10 mg PO DAILY 04/05/18 [History Confirmed ] Gabapentin [Neurontin] 200 mg PO BID PRN 04/05/18 [History Confirmed 04/05/18] Lisinopril 40 mg PO DAILY 04/05/18 [History Confirmed 04/05/18] Omeprazole 20 mg PO DAILY 04/05/18 [History Confirmed 04/05/18] PMH/Surg Hx/FS Hx/Imm Hx Endocrine/Hematology History: Denies: Hx Anticoagulant Therapy, Hx Diabetes, Hx Thyroid Disease Cardiovascular History: Reports: Hx Hypertension Denies: Hx Pacemaker/ICD Respiratory History: Denies: Hx Asthma, Hx Chronic Obstructive Pulmonary Disease (COPD) History: Reports: Hx Kidney Stones Denies: Hx Renal Disease Musculoskeletal History: Reports: Hx Arthritis, Other Musculoskeletal History - LOW BACK PAIN, PAIN IN RT LEG AND HIP, INTERMITTENT LEFT Denies: Hx Osteoporosis Sensory History: Denies: Hx Contacts or Glasses, Hx Hearing Aid Opthamlomology History: Denies: Hx Contacts or Glasses Neurological History: Reports: Hx Migraine - 20 years ago, Other Neuro Impairments/Disorders - spondylosis Denies: Hx Dementia, Hx Seizures Psychiatric History: Denies: Hx Panic Disorder, Hx Substance Abuse - Cancer History Hx Chemotherapy: No Hx Radiation Therapy: No - Surgical History Surgery Procedure, Year, and Place: CATARACTS REMOVED,TUBAL LIGATION, APPENDECTOMY Infectious Disease History: No Infectious Disease History: Reports: Hx Tuberculosis Denies: Hx Hepatitis, Hx Human Immunodeficiency Virus (HIV), Traveled Outside the [place] in Last 30 Days - Family History Known Family History: Positive: Hypertension, Diabetes - Social History Alcohol Use: Rare Hx Substance Use: No Substance Use Type: Reports: Marijuana Hx Tobacco Use: No Smoking Status (MU): Former Smoker Review of Systems Eyes: Negative - visual changes Negative: Sore Throat, Ear Ache Negative: Palpitations, Chest Pain Positive: Nausea Neurological: Other - Positive: dizziness Negative: Headache All Other Systems Reviewed And Are Negative: Yes Physical Exam - Summary Physical Exam Summary: VITAL SIGNS: Reviewed. GENERAL: Patient is an obese FEMALE who is lying comfortable in the stretcher. Patient is not in any acute respiratory distress. HEAD AND FACE: No signs of trauma. No ecchymosis, hematomas or skull depressions. No sinus tenderness. EYES: PERRLA, EOMI x 2, No injected conjunctiva, no nystagmus. EARS: Hearing grossly intact. Ear canals and tympanic membranes are within normal limits. MOUTH: Oropharynx within normal limits. NECK: Supple, trachea is midline, no adenopathy, no JVD, no carotid bruit, no c- spine tenderness, neck with full ROM. CHEST: Symmetric, no tenderness at palpation LUNGS: Clear to auscultation bilaterally. No wheezing or crackles. CVS: Regular rate and rhythm, S1 and S2 present, no murmurs or gallops appreciated. ABDOMEN: Soft, non-tender. No signs of distention. No rebound no guarding, and no masses palpated. Bowel sounds are normal. EXTREMITIES: FROM in all major joints, no edema, no cyanosis or clubbing. NEURO: Alert and oriented x 3. No acute neurological deficits. Speech is normal and follows commands. SKIN: Dry and warm GCS: 15 Triage Information Reviewed: Yes Vital Signs On Initial Exam: Initial Vitals Temp Pulse Resp BP Pulse Ox 96.7 F 85 27 229/90 95 04/05/18 07:33 04/05/18 07:33 04/05/18 07:33 04/05/18 07:33 04/05/18 07:33 Vital Signs Reviewed: Yes Diagnostics - Vital Signs Vital Signs Temp Pulse Resp BP Pulse Ox 04/05/18 07:46 76 19 166/79 95 04/05/18 07:45 23 04/05/18 07:39 82 24 95 04/05/18 07:33 96.7 F 85 27 229/90 95 - Laboratory Result Diagrams: 04/06/18 05:37 04/06/18 05:37 Lab Statement: Any lab studies that have been ordered have been reviewed, and results considered in the medical decision making process. - Radiology CXR Radiology Interpretation Completed By: Radiologist - PATCHY CONSOLIDATION OF THE RIGHT LOWER LOBE. RECOMMEND FOLLOW-UP UNTIL RESOLUTION TO EXCLUDE UNDERLYING PULMONARY PARENCHYMAL PATHOLOGY. ED physician reviewed this report. - CT Brain CT Interpretation Completed By: Radiologist - NO ACUTE INTRACRANIAL PATHOLOGY. MILD CHRONIC SMALL VESSEL ISCHEMIC CHANGE. ED physician has reviewed this report. - EKG 08:12 Cardiac Rate: NL - 70 bpm EKG Rhythm: Sinus Rhythm Summary of EKG Findings: no ST elevation, similar to previous EKG done 2016. Dizzy Course/Dx - Course Assessment/Plan: A 73 y/o female brought in by ambulance presents to the ED c/o dizziness since waking up and going to the bathroom the morning of 04/05/2018. She called her daughter, claimed she was feeling dizzy, and her daughter suggested calling an ambulance. She states that she feels like the room is spinning. She also endorses nausea. She claims to have not felt similar symptoms in a long time. She denies PEREZ, visual changes, sore throat, ear pain, CP or palpitations. She states that at the time of the episode she may have had some SOB due to anxiety but is not currently feeling those symptoms. Blood work without any significant abnormality except for slight anemia, and glucose of 261, lactic acid is 2.3, calcium is 8.4, magnesium was 1.6. In the ED course and the patient was given IV fluids, Zofran for nausea and vomiting, meclizine for the dizziness, magnesium for the hypomagnesemia and insulin for the hyperglycemia. Chest x-ray impression: At she consolidations of the right lower lobe recommended follow-up and the solution. Therefore the patient was started on Levaquin. Head CT impression: No acute intracranial pathology. Mild chronic small vessel disease ischemic changes. Patient was feeling better with the dizziness after the meclizine however she relapsed and now she is having dizziness. Therefore the patient was given 1 dose of Valium by mouth. Urinalysis contaminated. Therefore, we will send the urine for cultures. Patient is to have nausea and dizziness therefore I believe that the patient would benefit from admission. I discuss my physical exam, findings and test results with Dr. Mojica from the hospitalist services and he agrees to admit patient to his services. Patient is hemodynamically stable alert and oriented x 3. - Diagnoses Differential Diagnosis/HQI/PQRI: Benign Paroxysmal Positional Vertigo, CVA, Dysrhythmia, Meniere's Disease, Medication Reaction, Transient Ischemic Attack, Vasovagal Reaction Provider Diagnoses: Vertigo, Pneumonia - Provider Notifications Discussed Care Of Patient With: Salina Mojica Time Discussed With Above Provider: 11:00 Instructed by Provider To: Admit As Inpatient Discharge - Sign-Out/Discharge Documenting (check all that apply): Patient Departure - Admit - Discharge Plan Condition: Fair Disposition: ADMITTED TO [facility] - Billing Disposition and Condition Condition: FAIR Disposition: Admitted to [facility] - Attestation Statements Document Initiated by Scribe: Yes Documenting Scribe: Andrew Blount Provider For Whom Kaley is Documenting (Include Credential): Jose Maria Lobato MD Scribe Attestation: I, Andrew Blount, scribed for Jose Maria Lobato MD on 04/06/18 at 1735. Scribe Documentation Reviewed: Yes Provider Attestation: The documentation as recorded by the Andrew roche accurately reflects the service I personally performed and the decisions made by me, Jose Maria Lobato MD Attestations User Type: Provider with Scribe Provider Attestation: The documentation recorded by the kaley accurately reflects the service I personally performed and the decisions made by me.
[2018-04-05] MEDS ORDERED: Meclizine TAB* 12.5 MG PO ONE (08:05)
[2018-04-05 08:47] LABS: ABS Basophils 0 10^3/ul (0-0.2); ABS Eosinophils 0 10^3/ul (0-0.6); ABS Lymphocytes 1.1 10^3/ul (1.0-4.8); ABS Monocytes 0.4 10^3/ul (0-0.8); ABS Neutrophils 3.9 10^3/ul (1.5-7.7); ABS Nucleated RBC 0 10^3/ul; Eosinophil % 0.9 % (0-6); Hematocrit 34 % (35-47); Hemoglobin 11.6 g/dl (12.0-16.0); Lymphocyte % 19.4 % (25-47); Mean Corpuscular HGB Conc 34 g/dl (31-36); Mean Corpuscular Hemoglobin 28 pg (27-31); Mean Corpuscular Volume 83 fL (80-97); Mean Platelet Volume 7.5 fL (7.4-10.4); Nucleated Red Blood Cells % 0; Platelet Count 230 10^3/ul (150-450); Red Blood Count 4.11 10^6/ul (4.00-5.40); Red Cell Distribution Width 14 % (10.5-15); White Blood Count 5.4 10^3/ul (3.5-10.8)
[2018-04-05 09:04] LABS: EGFR Non-African American 74.6 (>60)
[2018-04-05] MEDS ORDERED: Insulin REGULAR(*) 1 UNITS UNIT IV PUSH ONE (09:06)
[2018-04-05] MEDS ORDERED: Magnesium Oxide TAB* 400 MG PO ONE (09:06)
[2018-04-05] MEDS ORDERED: Levofloxacin TAB* 250 MG PO ONE (09:09)
[2018-04-05] MEDS ORDERED: Diazepam TAB(*) 5 MG PO ONE (09:22)
[2018-04-05 09:44] LABS: Urine Appearance Clear; Urine Blood 1+ (Negative); Urine Color Yellow; Urine Ketones Trace (Negative); Urine Protein 2+(100 mg/dL) (Negative); Urine Red Blood Cell 1+(3-5/hpf) (Absent); Urine Specific Gravity 1.014 (1.010-1.030); Urine Urobilinogen Negative (Negative); Urine White Blood Cell 2+(11-20/hpf) (Absent)
[2018-04-05] MEDS ORDERED: Levofloxacin TAB* 750 MG PO ONE (10:00)
[2018-04-05] MEDS ORDERED: Labetalol IV* 5 MG/ML 20 ML VIAL IV PUSH ONE (10:42)
[2018-04-05] MEDS ORDERED: Dextrose 50% Syringe 50 ML* 25 GM/50 ML SYRINGE IV PUSH PRN (12:02)
[2018-04-05] MEDS ORDERED: Gabapentin CAP(*) 100 MG PO PRN (12:06)
[2018-04-05] MEDS ORDERED: Magnesium Sulfate 2 GM IV* 2 GM/50 ML BAG IVPB ONE (12:11)
[2018-04-05] MEDS ORDERED: NS 0.9% 1000 ML* 1,000 ML IV SCH (12:15)
[2018-04-05] MEDS: Ondansetron INJ* 2 MG/ML VIAL IV PRN (12:48)
[2018-04-05] MEDS: Aspirin 81 mg CHEW TAB* 81 MG TAB.CHEW PO SCH (12:48)
[2018-04-05] MEDS ORDERED: PROCHLORPERAZINE INJ 5 MG/ML 2 ML VIAL IV PRN (13:42)
[2018-04-05] MEDS: Heparin VIAL(*) 5000 UNITS/ML VIAL (FIVE THOUSAND) SUBCUT SCH ×2 (14:08→21:18)
[2018-04-05] MEDS: Meclizine TAB* 12.5 MG PO SCH ×2 (14:08→21:18)
[2018-04-05] MEDS: Azithromycin IV(*) 500 MG in NS 0.9% 250 ML* 250 ML IVPB SCH (14:23)
[2018-04-05] MEDS: Acetaminophen TAB* 325 MG PO PRN (15:49)
[2018-04-05] MEDS: cefTRIAXone(*) 1 GM in NS 0.9% 50 ML* 50 ML IVPB SCH (15:49)
--- NOTE | 2018-04-05 16:10 | HP ---
CC: Dr. Lopez * HISTORY AND PHYSICAL: DATE OF ADMISSION: 04/05/18 PRIMARY CARE PROVIDER: Dr. Lopez. ATTENDING PHYSICIAN WHILE IN THE HOSPITAL: Dr. Salina Davis * (report dictated by Torsten Walton NP). CHIEF COMPLAINT: 1. Dizziness. 2. Cough. HISTORY OF PRESENT ILLNESS: Ms. Perdomo is a 73-year-old female patient. She says she carries a history of hypertension, obesity, osteoarthritis, hyperlipidemia, TIA, diabetes, and she does have a history of vertigo too. She comes into our ER today stating that the last 2 to 3 days she has not really been feeling good and she has had a worsening cough. It has been nonproductive. She denies feeling short of breath, denies chest pain, denies any palpitations, but she has also stated that she has been feeling really dizzy , particularly to the point today when she tried getting up, she almost fell onto her bathroom door while walking to go to the bathroom. She says that she feels like the room is spinning. She has been very nauseous. She vomited once with it and she says just lying flat or sitting up makes it worse. She says kind of sitting at 30 degrees in the bed is the best that she has felt. She says that any time she goes to move her head she feels nauseous, feels like the room is spinning. She denied having any visual changes with this. She denied having any facial drooping. No weakness to one extremity or the other. She denied having any lower leg weakness. No numbness or tingling was reported. She says she has not been having any difficulty with speech or trouble finding her words. Her biggest complaint was the fact that she just was feeling dizzy and this was not going away. She says she does feel very nauseated with this. She said she feels better if she keeps her eyes closed. She came into the ED today. It was thought that this represented vertigo. She was given several rounds of meclizine and Valium, but despite this the dizziness persisted. In addition on workup, it was also found that she had pneumonia, but she only admits to cough, no shortness of breath, and denies having any fevers or chills. Because of these findings, we were asked to evaluate for admission. PAST MEDICAL HISTORY: Significant for: 1. Hypertension. 2. Obesity. 3. Osteoarthritis. 4. Hyperlipidemia. 5. TIA. 6. Diabetes. 7. Vertigo. PAST SURGICAL HISTORY: She has had an ovarian cyst removed. HOME MEDICATIONS: Include: 1. Amlodipine 5 mg daily. 2. Lisinopril 40 mg daily. 3. Hydrochlorothiazide 12.5 mg daily. 4. Tylenol 2 tablets p.o. every 8 hours as needed. 5. Lipitor 10 mg daily. 6. Gabapentin 200 mg p.o. b.i.d. as needed. 7. Omeprazole 20 mg daily. ALLERGIES TO MEDICATIONS: Include no known drug allergies. FAMILY HISTORY: Her mother had a pacemaker for cardiac arrhythmia. Father had a history of lung cancer. SOCIAL HISTORY: She is a former smoker. She smoked half a pack a day and she smoked for approximately 12 years. She occasionally drinks alcohol. Surrogate decision maker is her daughter. REVIEW OF SYSTEMS: There is no documented fever. She denied having any significant weight change. There is no double vision. She denied having any ear discharge. There is no rhinorrhea, no sore throat, no congestion. She denied having any chest pain. No shortness of breath. There was no abdominal pain. There was nausea, there was vomiting and dizziness, but no loss of consciousness. No pruritus and no skin ulcerations. Review of 14 systems was completed, all others negative. PHYSICAL EXAMINATION GENERAL: At this time, Ms. Perdomo is a 73-year-old female patient. She is sitting in the ED stretcher. She does not appear to be in any acute distress. She appears to be well nourished and well developed. VITAL SIGNS: Blood pressure 172/79, pulse 77, respirations were 17, O2 saturation was 91% on room air, temperature was 96.7. HEENT: Head: Atraumatic. Eyes: EOMs are intact. Sclerae anicteric and not pale. I did not elicit any nystagmus. Throat: Oral mucosa appears to be dry. No oropharyngeal erythema. NECK: Supple. LUNGS: Clear to auscultation. No wheezes, rales, or rhonchi. HEART: Sounds S1, S2. She had a regular rate and rhythm. There were no murmurs, rubs, or gallops. ABDOMEN: Soft. It was flat. It was nontender. The bowel sounds were present. EXTREMITIES: Pulses were 2+ throughout. She is moving all 4 extremities with 5 /5 strength. NEUROLOGIC: The patient is awake. She is alert. Her speech is clear. Visual baez intact. She had no facial drooping. Tongue was midline. Blih-de-zydb was intact bilaterally. Klxlwn-eb-puar intact bilaterally. I could not elicit nystagmus on my exam at this point, but she does again complain of feeling dizzy particularly with moving her head, but again with moving her head, I could not elicit any nystagmus. No gross focal deficits. SKIN: Grossly intact. DIAGNOSTIC STUDIES/LAB DATA: Her labs today reveal a WBC of 5.4, RBC of 4.1, hemoglobin 11.6, hematocrit 34, platelet count was 230. Sodium 136, potassium 3.7, chloride 104, bicarb 26, BUN 14, creatinine 0.76, glucose 261, lactate 2.3 , calcium 8.4, mag 1.6. Total bili 0.4, AST 17, ALT 23, alk phos 74. CK 91, troponin 0, CRP 4.77, BNP 63. Albumin 3.6. TSH 1.66. Urine showed 2+ protein , trace ketones, 1+ blood, 2+ leukocyte esterase, 2+ wbc's, 1+ rbc's, 3+ glucose. Toxicology negative for alcohol. She had a brain CT obtained today, which showed no acute intracranial pathology , mild chronic small vessel ischemic change. Chest x-ray, impression: Patchy consolidation in the right lower lobe, recommend followup until resolution to exclude underlying pulmonary parenchymal disease. She did have an EKG obtained today as well, which does show a normal sinus rhythm, rate of 70. She had no ST elevations or T-wave inversions noted, normal axis, and if you look to the previous EKG, it was similar. Old medical records were reviewed. ASSESSMENT AND PLAN: Ms. Perdomo is a 73-year-old female patient coming into the hospital today for complaints of dizziness, not feeling well, and cough. We were asked to evaluate for admission. She will be admitted under observation status for: 1. Dizziness. Again, this could be vertigo being exacerbated by a possible upper respiratory infection or possible pneumonia. However, she has significant vascular risk factors for stroke and transient ischemic attack, so I do think that getting an MRI just to rule out a posterior circulation stroke is appropriate in this patient, although it seems to fit with vertigo as it does get worse with moving her head. I will go ahead and put her on meclizine and p.r.n. Zofran and we will continue to follow. If there is positive imaging on the MRI, certainly we will get Neurology involved and do CTA and echo if needed. I am going to give her an aspirin right now, she has not taken one in about a week. 2. Hypertension. While we are waiting MRI findings, I will allow for permissive hypertension. If the MRI findings are negative, we will treat. 3. Pneumonia. I will go ahead and put her on antibiotics. I am checking legionella antigen, Strep pneumo antigen and flu swab and sputum culture. I am also checking blood culture and I will repeat a lactic as it was 2.3. 4. Osteoarthritis. Follow up with her PCP. 5. Hyperlipidemia. Checking lipid panel. We will continue her statin. 6. History of transient ischemic attack. Continue with secondary prevention. 7. History of diabetes. We will go ahead and check an A1c. She said she was on a med for it, but I do not see that listed, so we will need to clarify that with her PCP. I will put her on a sliding scale. 8. History of vertigo. Again, the dizziness episodes today could certainly be vertigo, so I will put her meclizine standing and antiemetics. 9. DVT prophylaxis: She is high risk. She will be placed on heparin subcu. 10. Her code status is full code. 11. Fluids, electrolytes, and nutrition: She can have a consistent carb diet. TIME SPENT: Time spent on admission was 60 minutes, greater than half of the time was spent [id number] with the patient obtaining my history and physical, other half of the time was spent going over the plan of care with the patient and implementing plan of care. I did discuss the plan of care with my attending, Dr. Davis; she is in agreement. TORSTEN WALTON, WILMA [id number]/[facility] #: [id number] CAMRYN
[2018-04-05] MEDS: Insulin LISPRO* 1 UNITS UNIT SUBCUT SCH (18:08)
[2018-04-05] MEDS ORDERED: Ibuprofen TAB* 600 MG PO ONE (18:34)
[2018-04-06] MEDS: Heparin VIAL(*) 5000 UNITS/ML VIAL (FIVE THOUSAND) SUBCUT SCH ×3 (05:27→21:05)
[2018-04-06] MEDS: Meclizine TAB* 12.5 MG PO SCH ×3 (05:27→21:05)
[2018-04-06 05:54] LABS: ABS Basophils 0 10^3/ul (0-0.2); ABS Eosinophils 0 10^3/ul (0-0.6); ABS Lymphocytes 1.7 10^3/ul (1.0-4.8); ABS Monocytes 0.6 10^3/ul (0-0.8); ABS Neutrophils 4.5 10^3/ul (1.5-7.7); ABS Nucleated RBC 0 10^3/ul; Eosinophil % 0.6 % (0-6); Hematocrit 33 % (35-47); Hemoglobin 11.1 g/dl (12.0-16.0); Mean Corpuscular HGB Conc 34 g/dl (31-36); Mean Corpuscular Hemoglobin 28 pg (27-31); Mean Corpuscular Volume 83 fL (80-97); Mean Platelet Volume 7.4 fL (7.4-10.4); Nucleated Red Blood Cells % 0.1; Platelet Count 247 10^3/ul (150-450); Red Blood Count 3.89 10^6/ul (4.00-5.40); Red Cell Distribution Width 14 % (10.5-15); White Blood Count 6.8 10^3/ul (3.5-10.8)
[2018-04-06 06:01] LABS: INR 0.94 (0.77-1.02)
[2018-04-06 06:53] LABS: EGFR Non-African American 74.6 (>60)
[2018-04-06] MEDS: Insulin LISPRO* 1 UNITS UNIT SUBCUT SCH ×3 (09:22→17:20)
[2018-04-06] MEDS: Omeprazole CAP* 20 MG PO SCH (09:23)
[2018-04-06] MEDS: Atorvastatin* 10 MG TAB PO SCH (09:23)
[2018-04-06] MEDS: Aspirin 81 mg CHEW TAB* 81 MG TAB.CHEW PO SCH (09:23)
[2018-04-06] MEDS: Azithromycin IV(*) 500 MG in NS 0.9% 250 ML* 250 ML IVPB SCH (13:28)
[2018-04-06] MEDS: Lisinopril TAB* 10 MG PO SCH (13:30)
[2018-04-06] MEDS: amLODIPine TAB* 5 MG PO SCH (13:30)
[2018-04-06] MEDS: Ondansetron INJ* 2 MG/ML VIAL IV PRN (15:19)
[2018-04-06] MEDS: cefTRIAXone(*) 1 GM in NS 0.9% 50 ML* 50 ML IVPB SCH (15:19)
[2018-04-06] MEDS: Acetaminophen TAB* 325 MG PO PRN (15:19)
--- NOTE | 2018-04-06 18:18 | PN ---
Subjective Date of Service: 04/06/18 Interval History: c/o dizziness worse with moving head side to side and movement. reports that her dizziness is improved today. she reports that she has dizziness on a daily basis. She denies chest pain or shortness of breath. denies abd pain n/v/d. denies fever or chills. denies report head congestion today. Called by nursing this afternoon - reported that patient fell to her knee because of dizziness, an unsteady gait- patient examined and reports no knee pain or any other injuries Family History: Unchanged from Admission Social History: Unchanged from Admission Past Medical History: Unchanged from Admission Objective Active Medications: Acetaminophen (Tylenol Tab*) 650 mg PO Q6H PRN PRN Reason: FEVER/PAIN Last Admin: 04/06/18 15:19 Dose: 650 mg Amlodipine Besylate (Norvasc Tab*) 5 mg PO DAILY [facility] Last Admin: 04/06/18 13:30 Dose: 5 mg Aspirin (Aspirin 81 Mg Chew Tab*) 81 mg PO DAILY [facility] Last Admin: 04/06/18 09:23 Dose: 81 mg Atorvastatin Calcium (Lipitor*) 10 mg PO DAILY [facility] Last Admin: 04/06/18 09:23 Dose: 10 mg Dextrose (D50w Syringe 50 Ml*) 12.5 gm IV PUSH .FOR FS < 60 - SS PRN PRN Reason: FS < 60 Gabapentin (Neurontin Cap(*)) 200 mg PO BID PRN PRN Reason: PAIN Heparin Sodium (Porcine) (Heparin Vial(*)) 5,000 units SUBCUT Q8HR [facility] Last Admin: 04/06/18 13:29 Dose: 5,000 units Sodium Chloride (Ns 0.9% 1000 Ml*) 1,000 mls @ 100 mls/hr IV PER RATE [facility] Last Admin: 04/05/18 12:49 Dose: 100 mls/hr Ceftriaxone Sodium 1 gm/ (Sodium Chloride) 50 mls @ 200 mls/hr IVPB Q24H [facility] Last Admin: 04/06/18 15:19 Dose: 200 mls/hr Azithromycin 500 mg/ Sodium (Chloride) 250 mls @ 250 mls/hr IVPB Q24H [facility] Last Admin: 04/06/18 13:28 Dose: 250 mls/hr Insulin Human Lispro (Humalog*) 0 units SUBCUT [facility]; Protocol Last Admin: 04/06/18 17:20 Dose: Not Given Lisinopril (Prinivil Tab*) 40 mg PO DAILY [facility] Last Admin: 04/06/18 13:30 Dose: 40 mg Meclizine HCl (Antivert Tab*) 25 mg PO Q8HR [facility] Last Admin: 04/06/18 13:28 Dose: 25 mg Omeprazole (Prilosec Cap*) 20 mg PO DAILY [facility] Last Admin: 04/06/18 09:23 Dose: 20 mg Ondansetron HCl (Zofran Inj*) 4 mg IV Q6H PRN PRN Reason: NAUSEA Last Admin: 04/06/18 15:19 Dose: 4 mg Prochlorperazine Edisylate (Compazine Inj*) 5 mg IV Q6H PRN PRN Reason: NAUSEA/VOMITING Last Admin: 04/05/18 14:08 Dose: 5 mg Vital Signs - 8 hr 04/06/18 04/06/18 04/06/18 11:32 13:06 13:24 Temperature 97.6 F 98.9 F 98.3 F Pulse Rate 76 89 81 Respiratory 16 18 Rate Blood Pressure 157/72 182/88 175/69 (mmHg) O2 Sat by Pulse 96 96 96 Oximetry 04/06/18 04/06/18 14:32 15:48 Temperature 98.3 F 98.6 F Pulse Rate 79 71 Respiratory 16 Rate Blood Pressure 182/91 169/75 (mmHg) O2 Sat by Pulse 98 96 Oximetry Oxygen Devices in Use Now: None Appearance: appears comfortable sitting on the str, no acute distress Eyes: No Scleral Icterus Ears/Nose/Mouth/Throat: Clear Oropharnyx, Mucous Membranes Moist Neck: NL Appearance and Movements; NL JVP, Trachea Midline Respiratory: Symmetrical Chest Expansion and Respiratory Effort, Clear to Auscultation Cardiovascular: NL Sounds; No Murmurs; No JVD, No Edema Abdominal: NL Sounds; No Tenderness; No Distention Extremities: No Edema, No Clubbing, Cyanosis Skin: No Rash or Ulcers Neurological: Alert and Oriented x 3, - - CN II-XII intact Nutrition: Taking PO's Result Diagrams: 04/06/18 05:37 04/06/18 05:37 Microbiology and Other Data: Microbiology 04/05/18 12:36 Aerobic Blood Culture - Preliminary Blood Venous No Growth Day 1 Anaerobic Blood Culture - Preliminary No Growth Day 1 04/05/18 12:42 Aerobic Blood Culture - Preliminary Blood Venous No Growth Day 1 Anaerobic Blood Culture - Preliminary No Growth Day 1 04/05/18 09:10 Urine Culture - Final Urine No Growth (<1,000 CFU/mL) 04/05/18 09:10 Legionella Urinary Antigen - Final Urine Negative Legionella Antigen Streptococcus pneumoniae Ag Screen - Final Negative S. pneumo Antigen 04/05/18 12:19 Influenza Types A,B Antigen - Final Nasopharyngeal Specimen received for Influenza A/B Molecular testing Assess/Plan/Problems-Billing Assessment: Ms. Perdomo is a 73-year-old female patient. She says she carries a history of hypertension, obesity, osteoarthritis, hyperlipidemia, TIA, diabetes, and vertigo. She comes into our ER today stating that the last 2 to 3 days history worsening cough and worsening dizziness - Patient Problems (1) Dizziness Current Visit: Yes Status: Acute Code(s): R42 - DIZZINESS AND GIDDINESS SNOMED Code(s): 802330730 Comment: suspect this s related to vertigo - will continue meclizine - MRI negative for acute infarct - chronic changes - neurology consulted - neurochecks intact - no nystagmus , does report increased dizziness with follow finger. - patient with ECHO in 2017 - bubble study was negative will continue to monitor on tele. (2) Pneumonia Current Visit: Yes Status: Acute Code(s): J18.9 - PNEUMONIA, UNSPECIFIED ORGANISM SNOMED Code(s): 429726770 Comment: - Will continue azithromycin and ceftriaxone - monitor respiratory status (3) HLD (hyperlipidemia) Current Visit: No Status: Acute Code(s): E78.5 - HYPERLIPIDEMIA, UNSPECIFIED SNOMED Code(s): 56877283 Comment: continue lipitor at 10 mg (4) HTN (hypertension) Current Visit: No Status: Acute Code(s): I10 - ESSENTIAL (PRIMARY) HYPERTENSION SNOMED Code(s): 19602530 Comment: hypertensive today - resumed home medications (5) History of TIA (transient ischemic attack) Current Visit: Yes Status: Acute Code(s): Z86.73 - PRSNL HX OF TIA (TIA), AND CEREB INFRC W/O RESID DEFICITS SNOMED Code(s): 051401620 Comment: continue lipitor and ASA (6) DVT prophylaxis Current Visit: No Status: Acute Code(s): SQL9150 - SNOMED Code(s): 408266547 Comment: SQ heparin (7) Full code status Current Visit: No Status: Acute Code(s): Z78.9 - OTHER SPECIFIED HEALTH STATUS SNOMED Code(s): 099044237 Status and Disposition: discharge home when medically stable
[2018-04-06] MEDS: hydrALAZINE IV* 20 MG/ML VIAL IV SLOW PU PRN (21:05)
[2018-04-07] MEDS: Acetaminophen TAB* 325 MG PO PRN ×2 (02:32→08:13)
[2018-04-07] MEDS: Meclizine TAB* 12.5 MG PO SCH ×2 (05:35→14:53)
[2018-04-07] MEDS: Heparin VIAL(*) 5000 UNITS/ML VIAL (FIVE THOUSAND) SUBCUT SCH ×2 (05:36→14:54)
[2018-04-07] MEDS: Omeprazole CAP* 20 MG PO SCH (08:12)
[2018-04-07] MEDS: Lisinopril TAB* 10 MG PO SCH (08:12)
[2018-04-07] MEDS: Aspirin 81 mg CHEW TAB* 81 MG TAB.CHEW PO SCH (08:12)
[2018-04-07] MEDS: Atorvastatin* 10 MG TAB PO SCH (08:13)
[2018-04-07] MEDS: amLODIPine TAB* 5 MG PO SCH (08:13)
[2018-04-07] MEDS: Insulin LISPRO* 1 UNITS UNIT SUBCUT SCH ×2 (08:15→12:25)
[2018-04-07] MEDS ORDERED: Hydrochlorothiazide TAB* 25 MG PO SCH (09:00)
[2018-04-07] MEDS: hydrALAZINE IV* 20 MG/ML VIAL IV SLOW PU PRN (09:33)
[2018-04-07] MEDS ORDERED: hydrALAZINE IV* 20 MG/ML VIAL IV SLOW PU ONE (10:40)
--- NOTE | 2018-04-07 10:52 | PN ---
Subjective Date of Service: 04/07/18 Interval History: Pt reports she feels much better today reporting her only complaint is nasal congestion. Denies any further dizziness. Occasional dry cough with no sputum. Denies SOB. Denies fever or chills. Discussed patients uncontrolled diabetes and patient states she wasn't aware it was "that bad". Diabetes education and diet were discussed. Pt is interested n follow up with Dr. Jennings and [facility]. Family History: Unchanged from Admission Social History: Unchanged from Admission Past Medical History: Unchanged from Admission Objective Active Medications: Acetaminophen (Tylenol Tab*) 650 mg PO Q6H PRN PRN Reason: FEVER/PAIN Last Admin: 04/07/18 08:13 Dose: 650 mg Amlodipine Besylate (Norvasc Tab*) 10 mg PO DAILY [facility] Aspirin (Aspirin 81 Mg Chew Tab*) 81 mg PO DAILY [facility] Last Admin: 04/07/18 08:12 Dose: 81 mg Atorvastatin Calcium (Lipitor*) 10 mg PO DAILY [facility] Last Admin: 04/07/18 08:13 Dose: 10 mg Dextrose (D50w Syringe 50 Ml*) 12.5 gm IV PUSH .FOR FS < 60 - SS PRN PRN Reason: FS < 60 Gabapentin (Neurontin Cap(*)) 200 mg PO BID PRN PRN Reason: PAIN Heparin Sodium (Porcine) (Heparin Vial(*)) 5,000 units SUBCUT Q8HR [facility] Last Admin: 04/07/18 05:36 Dose: 5,000 units Hydralazine HCl (Apresoline Iv*) 5 mg IV SLOW PU Q6H PRN PRN Reason: BLOOD PRESSURE Last Admin: 04/07/18 09:33 Dose: 5 mg Hydrochlorothiazide (Hydrodiuril Tab*) 25 mg PO DAILY [facility] Ceftriaxone Sodium 1 gm/ (Sodium Chloride) 50 mls @ 200 mls/hr IVPB Q24H [facility] Last Admin: 04/06/18 15:19 Dose: 200 mls/hr Azithromycin 500 mg/ Sodium (Chloride) 250 mls @ 250 mls/hr IVPB Q24H [facility] Last Admin: 04/06/18 13:28 Dose: 250 mls/hr Insulin Human Lispro (Humalog*) 0 units SUBCUT [facility]; Protocol Last Admin: 04/07/18 08:15 Dose: 3 units Lisinopril (Prinivil Tab*) 40 mg PO DAILY [facility] Last Admin: 04/07/18 08:12 Dose: 40 mg Meclizine HCl (Antivert Tab*) 25 mg PO Q8HR [facility] Last Admin: 04/07/18 05:35 Dose: 25 mg Omeprazole (Prilosec Cap*) 20 mg PO DAILY [facility] Last Admin: 04/07/18 08:12 Dose: 20 mg Ondansetron HCl (Zofran Inj*) 4 mg IV Q6H PRN PRN Reason: NAUSEA Last Admin: 04/06/18 15:19 Dose: 4 mg Prochlorperazine Edisylate (Compazine Inj*) 5 mg IV Q6H PRN PRN Reason: NAUSEA/VOMITING Last Admin: 04/05/18 14:08 Dose: 5 mg Vital Signs - 8 hr 04/07/18 04/07/18 04/07/18 03:08 05:48 08:21 Temperature 98.1 F Pulse Rate 75 72 Respiratory 16 Rate Blood Pressure 183/86 158/71 174/76 (mmHg) O2 Sat by Pulse 95 Oximetry 04/07/18 04/07/18 08:26 09:28 Temperature 98.4 F Pulse Rate 80 Respiratory 18 Rate Blood Pressure 194/104 187/91 (mmHg) O2 Sat by Pulse 96 Oximetry Oxygen Devices in Use Now: None Appearance: 73 yo obese female sitting up in a chair in NAD, A+O x3 Eyes: No Scleral Icterus, PERRLA Ears/Nose/Mouth/Throat: NL Teeth, Lips, Gums, Mucous Membranes Moist Neck: NL Appearance and Movements; NL JVP Respiratory: Symmetrical Chest Expansion and Respiratory Effort, Clear to Auscultation Cardiovascular: NL Sounds; No Murmurs; No JVD, RRR, No Edema Abdominal: NL Sounds; No Tenderness; No Distention, - - obese Extremities: No Edema, No Clubbing, Cyanosis Skin: No Rash or Ulcers, No Nodules or Sclerosis Neurological: Alert and Oriented x 3, NL Sensation, NL Muscle Strength and Tone Lines/Tubes/Other Access: Clean, Dry and Intact Peripheral IV Nutrition: Taking PO's Result Diagrams: 04/06/18 05:37 04/06/18 05:37 Microbiology and Other Data: Microbiology 04/05/18 12:36 Aerobic Blood Culture - Preliminary Blood Venous No Growth Day 1 Anaerobic Blood Culture - Preliminary No Growth Day 1 04/05/18 12:42 Aerobic Blood Culture - Preliminary Blood Venous No Growth Day 1 Anaerobic Blood Culture - Preliminary No Growth Day 1 04/05/18 09:10 Urine Culture - Final Urine No Growth (<1,000 CFU/mL) 04/05/18 09:10 Legionella Urinary Antigen - Final Urine Negative Legionella Antigen Streptococcus pneumoniae Ag Screen - Final Negative S. pneumo Antigen 04/05/18 12:19 Influenza Types A,B Antigen - Final Nasopharyngeal Specimen received for Influenza A/B Molecular testing Assess/Plan/Problems-Billing Assessment: Ms. Perdomo is a 73-year-old female patient. She says she carries a history of hypertension, obesity, osteoarthritis, hyperlipidemia, TIA, diabetes, and vertigo. She comes into our ER today stating that the last 2 to 3 days history worsening cough and worsening dizziness - Patient Problems (1) Pneumonia Comment: - Will continue azithromycin and ceftriaxone - monitor respiratory status (2) HTN (hypertension) Comment: - continues to be hypertensive today - looking at her trend she has been uncontrolled throughout hospitalization. Home medications resumed yesterday but continues to be uncontrolled. DC IVFs. Current BP 190/70 - give 5 mg hydralyzine x1 now. Repeat BP in 30 minutes. Most likely will need to increase home medications. 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
[2018-04-07] MEDS ORDERED: Hydrochlorothiazide TAB* 25 MG PO ONE (12:04)
[2018-04-07] MEDS ORDERED: amLODIPine TAB* 5 MG PO ONE (12:04)
[2018-04-07] MEDS ORDERED: Azithromycin TAB* 250 MG PO SCH (14:00)
[2018-04-07 16:00] VITALS: BP 144/65
--- NOTE | 2018-04-07 16:10 | CONS ---
NEUROLOGY CONSULTATION REPORT: DATE OF CONSULT: 04/07/18 REASON FOR CONSULT: Vertigo. CHIEF COMPLAINT: Dizziness. HISTORY OF PRESENT ILLNESS: Mrs. Perdomo is a 73-year-old female with a history of uncontrolled diabetes, hypertension, and morbid obesity who has a 2 to 3-week history of upper respiratory illness with congestion in the sinuses and cough, who presented with a 3-day history of vertigo. The patient woke up on 04/04/18 with intermittent spinning sensation. The spinning sensation occurs when moving the ahead too quickly or getting up. If she steers and isolates her head without any movements, the vertigo resolves after a minute or 2. The symptoms were associated with occasion ringing in the ears, but no hearing loss. She also has symptoms of again cough and congestion over the last few weeks. She felt that her world is spinning. The vertigo resolved last night. She denies any headaches, visual disturbance, focal weakness or paresthesias. The patient has a reported history of TIA, but I do not think this is correct. The patient stated that a few years ago, she was in the middle of a conflict between 2 of her children. The patient got really worried and passed out. That was considered the TIA although that sounds like syncope given the history. She does still take aspirin regularly. The patient presented to [facility] ER on 04/05/18. She had a CT of the head completed on 04/05/18 that showed no acute intracranial pathology with mild chronic small vessel ischemic changes. She had an MRI of the brain without contrast completed on 04/05/18 showed no evidence for acute intracranial abnormality. She does have increased signal intensity on T2- weighted images in the subcortical and periventricular white matter consistent with moderate chronic small vessel ischemic changes. PAST MEDICAL HISTORY: Hypertension, obesity, osteoarthritis, dyslipidemia, syncope, diabetes mellitus type 2, dizziness. PAST SURGICAL HISTORY: She had ovarian cyst removed. HOME MEDICATION: 1. Amlodipine 5 mg daily 2. Lisinopril 4 mg daily. 3. Hydrochlorothiazide 12.5 mg daily. 4. Tylenol 2 tablets by mouth every 8 hours. 5. Lipitor 10 mg daily. 6. Gabapentin 200 mg p.o. b.i.d. as needed for hip pain. 7. Omeprazole 20 mg daily. ALLERGIES TO MEDICATION: No known drug allergies. FAMILY HISTORY: Her grandmother had a stroke. Both her parents did not suffer from a stroke or seizures. Her father had history of lung cancer. Her mother had cardiac arrhythmias. SOCIAL HISTORY: The patient is a former smoker. She smoked for approximately 12 years. She drinks alcohol occasionally. She lives alone, but the surrogate decision maker is her daughter. REVIEW OF SYSTEMS: A 14-point review of systems was obtained and otherwise negative except what was mentioned in the HPI. PHYSICAL EXAM: Vital Signs: Temperature of 98.4, heart rate of 72, oxygen of 96, blood pressure of 194/104. General: Well-appearing female, in no acute distress. Obese. Head: Normocephalic atraumatic. Eyes: Conjunctivae/corneas are clear. Neck is supple and symmetrical with no carotid bruit. Lungs are clear to auscultation bilaterally. Cardiovascular: Regular rate and rhythm with normal S1, S2. Extremities: Normal range of motion with no cyanosis. Skin: No skin lesions or laceration. Psych: Affect is broad and normal mood. Neurological Examination: Mental status awake, alert and oriented to person, place, time, and general circumstance. Language including expression, naming, repetition, and comprehension were assessed and found to be normal. Cranial Nerves: Normal to confrontation testing bilaterally. Pupils are midrange and reactive to light. Normal consensual response. Sensation is intact on the forehead, cheeks, and jaw region bilaterally. No facial asymmetry. She does have slight widening of the palpebral fissure on the left side. This is according to the patient not acute. Tongue is symmetrical and midline with no atrophy or fasciculation. Motor: No abnormal movements or pronator drift. Normal bulk and tone throughout. No fasciculation. She has 5/5 strength in the upper and lower extremities bilaterally. Reflexes right/left: Brachioradialis 2/2, biceps 2/2, triceps 2/2, patella 2/2, ankle 1/1, plantar flexor/flexor. Sensation is intact to light touch throughout. Coordination normal [id number]-jl-stms and rapid alternating movement. Gait: Wide based gait. The patient's heart rate jumped to 120 when she ambulated approximately 200 feet around the unit. LABORATORY DATA: WBC of 6.8, hemoglobin of 11.1, hematocrit of 33, platelet count of 247. INR of 0.94. Blood glucose 165, calcium of 8.1. HDL 34, LDL 73. Urine analysis showed no evidence of pyuria. ASSESSMENT AND RECOMMENDATION: 1. Mrs. Mary Perdomo is a 73-year-old female with history of hypertension, former tobacco use, dyslipidemia, obesity, and diabetes mellitus type 2, who presented with a 3-day history of intermittent, positional-induced vertigo. Given that the vertigo she had preceded upper respiratory tract infection and the lack of any other focal neurological deficits, in addition to the MRI of the brain that showed no acute infarction, I suspect the patient has a vestibular dysfunction probably acute labyrinthitis. Her symptoms resolved after a few days, most likely due to the improvement of the upper respiratory illness. She has many risk factors for an acute ischemic stroke. I educated the patient regarding the importance of her blood pressure control and monitoring and controlling her diabetes is crucially important to prevent a stroke in the future. She relayed to me that she wants to live longer to be around her 15 grandchildren. She was receptive to the fact that she has many risk factors and will improve her lifestyle. The patient does take aspirin regularly. She should not be diagnosed with transient ischemic attack or stroke during this admission. 2. Hypertensive urgency - defer to the primary team. 3. History of transient ischemic attack - this was clarified in the history, I suspect the patient had a syncope rather than transient ischemic attack in the past. 4. History of moderate white matter changes consistent with moderate small vessel ischemia. This is due to her risk factors of hypertension and uncontrolled diabetes. Controlling these risk factors as well as taking aspirin may help minimize progression. TIME SPENT: I spent a total of 70 minutes, of which more than 50% was spent obtaining history, examining the patient, education and counseling, and discussing the treatment plan as mentioned above. I also discussed this case with Ms. Jannette Hernandez. There is known further neurological workup from our standpoint except for controlling her blood pressure. Neurology will sign off. Please note we are available for any questions or concerns. [id number]/[facility] #: [id number] CAMRYN
[2018-04-08] MEDS ORDERED: amLODIPine TAB* 5 MG PO SCH (09:00)
[2018-04-08] MEDS ORDERED: Hydrochlorothiazide TAB* 25 MG PO SCH (09:00)
--- NOTE | 2018-04-08 13:19 | DS ---
AMENDED REPORT NOW INCLUDES DESIGNATED COSIGNER CC: Dr. Lopez * DISCHARGE SUMMARY: DATE OF ADMISSION: 04/05/18 DATE OF SURGERY: 04/07/18 PROVIDER: Tracie Charles NP. ATTENDING PHYSICIAN: Dr. Bueno * (report dictated by Tracie Charles NP). PRIMARY CARE PROVIDER: Dr. Lopez. DISCHARGE DIAGNOSES: 1. Pneumonia, viral versus bacterial. 2. Lactic acidosis, possibly secondary to pneumonia versus sepsis. 3. Uncontrolled hypertension. 4. Type 2 diabetes, uncontrolled. 5. Dizziness, suspect due to acute labyrinthitis. SECONDARY DIAGNOSES: 1. Obesity. 2. Osteoarthritis. 3. Hyperlipidemia. 4. History of transient ischemic attack. 5. History of vertigo. HISTORY OF PRESENT ILLNESS AND HOSPITAL COURSE: Please see history and physical by Torsten Walton NP, for full admission details, but in summary, this is a 73-year- old female with a past medical history of hypertension, obesity, hyperlipidemia, diabetes, who presented to the emergency department on 04/05/18 with complaints of dizziness and cough. On the day of admission, she reported that she had 2 to 3 days of not feeling well; however, in discussing with her further, she reports that possibly more like 5 to 7 days that she reported a nonproductive cough and feeling "very fatigued." Her biggest complaint was that she was feeling dizzy and felt like she was going to fall at home, reporting spinning of the room with nausea and vomiting, she vomited once. She denied any other neurological symptoms. She was admitted into the hospitalist' s service for dizziness. On admission, she was found to have a chest x-ray that was concerning for pneumonia showing "patchy consolidation of the right lower lobe." She had no noted leukocytosis on admission but did have elevated lactic acid but no other signs of sepsis. Her lactic acid was trended and did resolve. The patient has continued to have a cough which was turning to be more productive with some mild sputum production. Overall, patient reports that she feels much better and would like to go home today. She was negative for influenza A and B, negative urine culture, negative urine legionella and S. pneumonia antigen, negative blood cultures. In regards to her dizziness, she underwent an MRI of the brain which showed no evidence for acute intracranial pathology and showed increased signal density in the subcortical and periventricular white matter most consistent with moderate chronic vessel ischemic changes. She was seen in consultation by neurologist Dr. Montanez who felt most likely her dizziness was secondary to vestibular dysfunction, possibly acute labyrinthitis. Today, her symptoms have resolved and has been taking p.r.n. meclizine. Dr. Montanez did recommend a daily aspirin due to her risk factors of hypertension, obesity, and diabetes. The patient has been noted to have uncontrolled hypertension throughout her hospitalization. She is to continue on her home dose lisinopril 40 mg daily and amlodipine was increased from 5 mg to 10 daily and her hydrochlorothiazide was increased from 12.5 mg to 25 mg daily. She will need close followup on her blood pressures and this was discussed with the patient. In regards to the patient's type 2 diabetes, patient reports that she takes metformin once a day at home, she believes 500 mg. Her hemoglobin A1c is 10.9 noted to be up from July 2017 of . It was discussed with the patient that her Metformin should be increased to twice a day. We as well discussed dietary and lifestyle changes and the patient has been referred to [facility] which the patient agrees at this time to follow up. It is also possible she would benefit from a referral to the chief radiation therapist Dr. Adan Jennings; however, will leave this to be determined by the primary care provider. The patient's lactic acid should be rechecked in 1 to 2 weeks after restarting the metformin as it is a possibility that his was the cause of her lactic acidosis; however, in the setting of acute illness, it is unclear. DISCHARGE MEDICATIONS: 1. Lisinopril 40 mg p.o. daily. 2. Acetaminophen 1000 p.o. q.8 hours p.r.n. 3. Lipitor 10 mg p.o. daily. 4. Gabapentin 200 mg p.o. b.i.d. p.r.n. 5. Omeprazole 20 mg p.o. daily. 6. Metformin 500 mg p.o. b.i.d. (increased from once daily). 7. Norvasc 10 mg p.o. daily (increased from 5 mg daily). 8. Meclizine 25 mg p.o. q.8 hours p.r.n. dizziness (new medication). 9. Magnesium oxide 400 mg p.o. daily (new medication). 10. Hydrochlorothiazide 25 mg p.o. daily (this was increased from 12.5 mg p.o. daily). 11. Azithromycin 250 mg p.o. daily x3 doses. 12. Aspirin 81 mg p.o. daily (new medication). DISCHARGE PLAN: 1. Follow up with primary care provider Dr. Lopez within 5 to 7 days. 2. I will follow up with [facility] for lifestyle changes for diabetes, hypertension and obesity. 3. The patient will need close followup of her blood pressure, this was discussed with the patient. 4. Consider referral to Dr. Jennings chief radiation therapist. 5. Repeat lactic acid in 1 to 2 weeks. TIME SPENT: Approximately 60 minutes was spent on this discharge. TRACIE CHARLES NP [id number]/[facility] #: [id number] CAMRYN
== END 2018-04-07 18:05 | disposition home or self-care (01) ==
LOC: ED 07:29 → MEDTELE 13:45
PROVIDERS: ADMIT Internal Medicine; ATTEND Internal Medicine
DX: J18.9 Pneumonia, unspecified organism (principal); E87.2 Acidosis; E11.9 Type 2 diabetes mellitus without complications; R42 Dizziness and giddiness; E66.9 Obesity, unspecified; M19.90 Unspecified osteoarthritis, unspecified site; E78.5 Hyperlipidemia, unspecified; Z86.73 Personal history of transient ischemic attack (TIA), and cerebral infarction without residual deficits; Z79.82 Long term (current) use of aspirin; R05 Cough; I10 Essential (primary) hypertension; R11.0 Nausea; Z87.891 Personal history of nicotine dependence
CPT/HCPCS: 36415; 70450; 70551; 71046; 80048; 80053; 80061; 80320; 81003; 81015; 82550; 83036; 83605; 83735; 83880; 84443; 84484; 85025; 85610; 86140; 87040; 87086; 87899; 93005; 96365; 96366; 96367; 96375; 96376; 99285; A9270-GY; G0378; G0480; G8978-GP-CI; G8979-GP-CI; G8980-GP-CI; J0360; J0456; J0696; J0780; J1644; J2405; J3475

== ENCOUNTER 2018-10-19 14:30 | Observation (INO) | payer MEDICARE ==
--- NOTE | 2018-10-19 15:01 | ED ---
Dizziness - HPI Summary HPI Summary: This patient is a 73 year old female presenting to [facility] with a chief complaint of dizziness since last night. She states she felt it as soon as she raised her head to get out of bed this morning. She states the room is spinning. She states she had similar episodes years ago and was told it was vertigo when she has it checked then. She reports chest pressure since this morning. Pt denies any fever, chills, erythema of eyes, sore throat, SOB, cough, abdominal pain, N/ V, dysuria, hematuria, myalgia, edema, or rash. - History Of Current Complaint Chief Complaint: EDDizziness Stated Complaint: DIZZINESS PER PT Hx Obtained From: Patient Character: Room Spinning Aggravating Factor(s): Position Change, Change In Head Position - Allergies/Home Medications Allergies/Adverse Reactions: Allergies Allergy/AdvReac Type Severity Reaction Status Date / Time No Known Allergies Allergy Verified 10/19/18 14:31 Home Medications: Home Medications Gabapentin CAP(*) [Neurontin 100 mg CAP(*)] 100 - 200 mg PO BID 10/19/18 [ History Confirmed 10/19/18] Hydrochlorothiazide TAB* [Hydrodiuril TAB*] 50 mg PO DAILY 10/19/18 [History Confirmed 10/19/18] Lisinopril TAB* [Prinivil TAB*] 40 mg PO DAILY 10/19/18 [History Confirmed 10/19] Meclizine TAB* [Antivert 12.5 TAB*] 25 mg PO TID PRN 10/19/18 [History Confirmed 10/19/18] Omeprazole CAP (NF) [Prilosec CAP* 20 MG] 20 mg PO DAILY 10/19/18 [History Confirmed 10/19/18] metFORMIN* [Glucophage 500 MG TAB *] 500 mg PO QPM 10/19/18 [History Confirmed 10/19/18] PMH/Surg Hx/FS Hx/Imm Hx Endocrine/Hematology History: Reports: Hx Anemia Denies: Hx Anticoagulant Therapy, Hx Diabetes, Hx Thyroid Disease Cardiovascular History: Reports: Hx Hypertension Denies: Hx Pacemaker/ICD Respiratory History: Denies: Hx Asthma, Hx Chronic Obstructive Pulmonary Disease (COPD) History: Reports: Hx Kidney Stones Denies: Hx Renal Disease Musculoskeletal History: Reports: Hx Arthritis, Other Musculoskeletal History - LOW BACK PAIN, PAIN IN RT LEG AND HIP, INTERMITTENT LEFT Denies: Hx Osteoporosis Sensory History: Denies: Hx Cataracts, Hx Contacts or Glasses, Hx Hearing Aid Opthamlomology History: Denies: Hx Cataracts, Hx Contacts or Glasses Neurological History: Reports: Hx Migraine - 20 years ago, Hx Transient Ischemic Attacks (TIA), Other Neuro Impairments/Disorders - spondylosis Denies: Hx Dementia, Hx Seizures Psychiatric History: Denies: Hx Panic Disorder, Hx Substance Abuse - Cancer History Hx Chemotherapy: No Hx Radiation Therapy: No - Surgical History Surgery Procedure, Year, and Place: CATARACTS REMOVED,TUBAL LIGATION, APPENDECTOMY Infectious Disease History: No Infectious Disease History: Reports: Hx Tuberculosis Denies: Hx Hepatitis, Hx Human Immunodeficiency Virus (HIV), Traveled Outside the [place] in Last 30 Days - Family History Known Family History: Positive: Hypertension, Diabetes - Social History Alcohol Use: Rare Hx Substance Use: No Substance Use Type: Reports: Marijuana Hx Tobacco Use: No Smoking Status (MU): Former Smoker Review of Systems Negative: Fever, Chills Negative: Erythema Negative: Sore Throat Positive: Chest Pain Negative: Shortness Of Breath, Cough Negative: Abdominal Pain, Vomiting, Nausea Negative: dysuria, hematuria Negative: Myalgia, Edema Negative: Rash Neurological: Other - Dizziness All Other Systems Reviewed And Are Negative: No Physical Exam - Summary Physical Exam Summary: Constitutional: Well-developed, Well-nourished, Alert. (-) Distressed HENT: Normocephalic; Atraumatic Eyes: Conjunctiva normal Neck: Musculoskeletal ROM normal neck. (-) JVD, (-) Stridor, (-) Tracheal deviation Cardio: Rhythm regular, rate normal, Heart sounds normal; Intact distal pulses; The pedal pulses are 2+ and symmetric. Radial pulses are 2+ and symmetric. (-) Murmur Pulmonary/Chest wall: Effort normal. (-) Respiratory distress, (-) Wheezes, (-) Rales Abd: Soft, (-) tenderness, (-) Distension, (-) Guarding, (-) Rebound Musculoskeletal: (-) Edema Lymph: (-) Cervical adenopathy Neuro: Alert, Oriented x3. Head movement appears to illicit vertigo. Skin: Warm, Dry Psych: Mood and affect Normal Triage Information Reviewed: Yes Vital Signs On Initial Exam: Initial Vitals Temp Pulse Resp BP Pulse Ox 98.1 F 103 18 152/76 96 10/19/18 14:30 10/19/18 14:30 10/19/18 14:30 10/19/18 14:30 10/19/18 14:30 Vital Signs Reviewed: Yes Diagnostics - Vital Signs Vital Signs Temp Pulse Resp BP Pulse Ox 10/19/18 14:30 98.1 F 103 18 152/76 96 - Laboratory Result Diagrams: 10/19/18 15:55 10/19/18 15:55 Lab Statement: Any lab studies that have been ordered have been reviewed, and results considered in the medical decision making process. - Radiology CXR Radiology Interpretation Completed By: Radiologist Summary of Radiographic Findings: No active cardiopulmonary disease noted. ED Provider has reviewed this report. - EKG 1507 Cardiac Rate: NL EKG Rhythm: Sinus Rhythm - 95 BPM Summary of EKG Findings: No STEMI. Dizzy Course/Dx - Course Course Of Treatment: This patient is a 73 year old female presenting to [facility] with a chief complaint of dizziness. Labs reveals Urine Bacteria 1+ A Urine WBC 3+ A. CXR and EKG are unremarkable for cardiopulmonary problems. Dr. Nam, Hospitalist, accepted the patient for admission. A plan for admission was discussed with the patient and she was agreeable with this plan. - Diagnoses Provider Diagnoses: UTI (urinary tract infection), Vertigo, Chest pain, unspecified Discharge - Sign-Out/Discharge Documenting (check all that apply): Patient Departure - Admission - Discharge Plan Condition: Stable Disposition: ADMITTED TO [facility] Referrals: Isaut Lopez MD [Primary Care Provider] - - Billing Disposition and Condition Condition: STABLE Disposition: Admitted to [facility] - Attestation Statements Document Initiated by Josselin: Yes Documenting Scribe: Chad Banegas Provider For Whom Josselin is Documenting (Include Credential): Corby Cobian MD Scribe Attestation: Chad Kelley scribed for Corby Cobian MD on 10/19/18 at 1999. Scribe Documentation Reviewed: Yes Provider Attestation: The documentation as recorded by the Chad roche accurately reflects the service I personally performed and the decisions made by me, Corby Cobian MD Status of Scribe Document: Viewed
[2018-10-19 16:16] LABS: ABS Basophils 0.1 10^3/ul (0-0.2); ABS Eosinophils 0.1 10^3/ul (0-0.6); ABS Lymphocytes 1.8 10^3/ul (1.0-4.8); ABS Monocytes 0.6 10^3/ul (0-0.8); ABS Neutrophils 6.5 10^3/ul (1.5-7.7); Eosinophil % 0.7 %; Hematocrit 37 % (35-47); Hemoglobin 12.6 g/dL (12.0-16.0); Lymphocyte % 19.6 %; Mean Corpuscular HGB Conc 34 g/dL (31-36); Mean Corpuscular Hemoglobin 29 pg (27-31); Mean Corpuscular Volume 84 fL (80-97); Mean Platelet Volume 7.5 fL (7.4-10.4); Platelet Count 298 10^3/uL (150-450); Red Blood Count 4.34 10^6 /uL (3.70-4.87); Red Cell Distribution Width 13 % (10.5-15); White Blood Count 9.1 10^3/uL (3.5-10.8)
[2018-10-19 16:24] LABS: INR 0.94 (0.82-1.09)
[2018-10-19 16:32] LABS: Urine Appearance Cloudy; Urine Bacteria 1+ (Absent); Urine Bilirubin Negative (Negative); Urine Blood 1+ (Negative); Urine Color Yellow; Urine Glucose 1+(50 mg/dL) (Negative); Urine Ketones Trace (Negative); Urine Nitrite Negative (Negative); Urine Protein Negative (Negative); Urine Red Blood Cell 1+(3-5/hpf) (Absent); Urine Specific Gravity 1.019 (1.010-1.030); Urine Squamous Epithelial Cell Present (Absent); Urine Urobilinogen Negative (Negative); Urine White Blood Cell 3+(>20/hpf) (Absent)
[2018-10-19 16:42] LABS: Albumin/Globulin Ratio 1.2 (1-3); BUN/Creatinine Ratio 23.3 (8-20); Calcium 9.1 mg/dL (8.6-10.3); EGFR African American 74.3 (>60); EGFR Non-African American 61.4 (>60); Globulin 3.3 g/dL (2-4); Potassium 3.2 mmol/L (3.5-5.0); Total Bilirubin 0.3 mg/dL (0.2-1.0); Total Protein 7.3 g/dL (6.4-8.9)
[2018-10-19] MEDS ORDERED: NS 0.9% 1000 ML** 1,000 ML IV ONE (17:07)
[2018-10-19] MEDS ORDERED: Aspirin 81 mg CHEW TAB* 81 MG TAB.CHEW PO ONE (17:19)
[2018-10-19] MEDS ORDERED: Nitroglycerin TAB 0.4 MG* 0.4 MG TAB SL ONE (17:19)
[2018-10-19] MEDS ORDERED: Nitroglycerin TAB 0.4 MG* 0.4 MG TAB ONE (17:21)
[2018-10-19] MEDS ORDERED: Aspirin 81 mg CHEW TAB* 81 MG TAB.CHEW ONE (17:21)
[2018-10-19] MEDS ORDERED: cefTRIAXone(*) 1 GM in NS 0.9% 50 ML* 50 ML IVPB ONE (17:21)
[2018-10-19] MEDS ORDERED: Meclizine TAB* 12.5 MG PO ONE (18:38)
[2018-10-19] MEDS ORDERED: Potassium Chlor TAB* 20 MEQ TAB.ER PO ONE (20:35)
[2018-10-19] MEDS ORDERED: Al Hydrox/Mg Hydrox/Simet LIQ* 30 ML UDC PO PRN (21:26)
[2018-10-19] MEDS ORDERED: Acetaminophen TAB* 325 MG PO PRN (21:26)
[2018-10-19] MEDS ORDERED: Meclizine TAB* 12.5 MG PO PRN (21:38)
[2018-10-19] MEDS ORDERED: Dextrose 50% Syringe 50 ML* 25 GM/50 ML SYRINGE IV PUSH PRN (21:41)
[2018-10-19] MEDS ORDERED: Enoxaparin(*) 40 MG/0.4 ML SYR SUBCUT SCH (22:00)
--- NOTE | 2018-10-20 04:28 | HP ---
CC: Dr. Lopez. HISTORY AND PHYSICAL: DATE OF ADMISSION: 10/19/18 PROVIDER: Gaye Henderson NP PRIMARY CARE PROVIDER: Dr. Lopez. ATTENDING PHYSICIAN WHILE IN THE HOSPITAL: Julián Wilde M.D.(dictated by Gaye Henderson NP) . CHIEF COMPLAINT: 1. Dizziness. 2. Left-sided chest pressure. HISTORY OF PRESENT ILLNESS: Ms. Perdomo is a 73-year-old female with past medical history significa nt for hypertension, diabetes type 2, history of benign positional vertigo and TIA in 2017, who prese nted to the emergency room with the complaints of dizziness. She reports that she started feeling di zzy last p.m. She reports that it is worse when she moves her head side to side. She reports that w hen lying flat the room starts spinning. She also reports that it is worse with standing. She does state that it takes a little bit to be able to focus when standing. She reports that her last episod e of vertigo was approximately 6 months ago that lasted for approximately 24 hours. Prior to that wa s several months prior to that that she had an episode of vertigo. The patient also complains of lef t-sided chest heaviness and she reports that this started yesterday, it comes and goes. She does rep ort that it is worse with deep breath. She also reports that she has shortness of breath with exerti on and developed left-sided chest pain and that this has been going on for the past year. She states that the left-sided chest heaviness lasts for approximately 1 hour and subsides with rest. She repo rts that exertion and walking makes the pressure worse and the shortness of breath worse and rest imp roves. She currently denies any chest pressure at this time. She denies any fever, chills, unintended weight loss. She does report left-sided chest pressure wors e with deep breath and she does report exertional left-sided chest pain and shortness of breath. She denies any cough, hemoptysis, or current shortness of breath. She does report some nausea with posi tion change and the dizziness becomes severe. Denies any diarrhea, abdominal pain, hematuria, dysuri a, focal weakness, or sensory loss. Denies any dysphagia or arthralgias. She does report chronic yaron int and muscle aches. No change from baseline. Denies any rashes, lesions, psychosis, or anxiety. Due to her dizziness and left-sided heaviness we were asked to see and evaluate her for admission. PAST MEDICAL HISTORY: 1. Hypertension. 2. Type 2 diabetes. 3. Osteoarthritis. 4. Obesity. 4. Dizziness/vertigo. 5. History of TIA in 2017. 6. Hyperlipidemia. PAST SURGICAL HISTORY: Ovarian cyst removed. HOME MEDICATIONS: 1. Lisinopril 40 mg p.o. daily. 2. Atorvastatin 40 mg p.o. daily. 3. Omeprazole 20 mg p.o. daily. 4. Meclizine 25 mg t.i.d. 5. Gabapentin 200 mg b.i.d. 6. Amlodipine 10 mg p.o. daily. 7. Hydrochlorothiazide 25 mg p.o. daily. 8. Metformin 500 mg p.o. daily. 9. Aspirin 81 mg p.o. daily. ALLERGIES: No known drug allergies. FAMILY HISTORY: Mother had a pacemaker for cardiac arrhythmias. Father had lung cancer. SOCIAL HISTORY: The patient reports that she quit smoking 35 years ago. Prior to that she smoked to half a pack a day for approximately 2 years. She does report rare alcohol use. She does report mar ijuana use 2 times weekly. She is retired. She is . Surrogate decision maker in the event benja canales is unable to make her own decisions is her daughter Zeinab Boles. She is a full code. REVIEW OF SYSTEMS: An 11-point review of systems was completed. All pertinent positives are mention ed in the HPI. Otherwise, are negative. PHYSICAL EXAMINATION GENERAL: At this time, Ms. Perdomo is a 73-year-old female. She is alert and oriented x3, resting on the stretcher in the emergency room. She does not appear in acute distress. VITAL SIGNS: Blood pressure 132/61, heart rate 76, respirations are 23, O2 saturation is 98% on room air, temperature was 98.1. HEENT: Head is atraumatic, normocephalic. Eyes: EOMs are intact. Sclerae anicteric and not pale. Oral mucosa appeared to be moist. NECK: Supple. LUNGS: Clear to auscultation bilaterally. No wheezes, rales, or rhonchi. CARDIAC: S1, S2. Regular rate and rhythm. No murmurs, rubs, or gallops. ABDOMEN: Obese, soft and nontender. Bowel sounds are present x4. EXTREMITIES: She can move all 4 extremities with 5/5 strength. Pedal pulses are +2 bilaterally. Ra dial pulses are +2 bilaterally. Skin is intact. NEUROLOGIC: She is alert and oriented x3. Cranial nerves II through XII are grossly intact. No nys tagmus. Azktyb-gd-fkvf is intact. Bjhc-lu-qywr is intact. Sensation is intact. Smile is equal. To ngue is midline. There is no facial asymmetry. There is no pronator drift or tremoring. Push-pull is intact. No gross focal deficits. LABORATORY DATA AND DIAGNOSTIC STUDIES: WBCs are 9.1, RBCs 4.34, hemoglobin 12.6, hematocrit 37, pl atelet count is 298, INR is 0.94. Sodium 137, potassium 3.2, chloride 100, carbon dioxide was 25, an ion gap was 12, BUN was 21, creatinine was 0.90. ASTs were 26, ALTs 30, alkaline phosphatase 68. Tr oponin was 0.00 and 0.01. Urine is yellow and cloudy, pH was 5.0, specific gravity 1.019, urine protein was negative. Urine ke tones were trace, urine blood was 1+. Urine nitrites, bilirubin, urobilinogen were negative. Urine leukocyte esterase was 3+, wbc's were 3+, rbc's 1+, squamous epithelial cells were present, bacteria was 1+, hyaline casts were present, glucose was 1+. She had a chest x-ray. Radiologist's impression: No active cardiopulmonary disease. She had an javier ctrocardiogram, which showed sinus rhythm at a rate of 95. There was no ST or T-wave changes. ASSESSMENT AND PLAN: Ms. Perdomo is a 73-year-old female with a past medical history significant fo r benign positional vertigo, history of a transient ischemic attack in 2017, hypertension, hyperlipid emia, and diabetes who presented to the emergency room with complaints of dizziness and left-sided ch est pressure. She will be admitted under observation for: 1. Dizziness. I suspect this is related to benign positional vertigo as patient's symptoms are exac erbated by change in position, is worse with standing and lying flat. The room is spinning. The pat ient does have a history of vertigo in the past for which she is currently taking meclizine. We will continue her meclizine at 25 mg p.o. t.i.d. Within the differential is also posterior CVA. As the patient does have a history of hypertension, hyperlipidemia, and a history of TIA, I will order an MR I of the brain to rule out CVA, as this could be within the differential. If it is positive for CVA, we will get Neurology involved. At that time, we will get a CTA of the head and neck. The patient is already currently taking an aspirin 81 mg p.o. daily. We will continue her on her atorvastatin as previously prescribed. If her MRI is positive for CVA, the patient will be needed to be started on dual antiplatelet therapy. The patient does have a history of a TIA in the past. She did have trans thoracic echocardiogram with bubble study was negative in 07/2016. 2. Left-sided chest pressure. The patient does complain of left-sided chest pressure. She reports that it is worse with deep breath. The patient has a DWAYNE score of 3 giving her a 13% risk at 14 day all-cause mortality, new or recurrent DC or severe recurrent ischemia recurring urgent revasculariza tion. The patient has had 2 negative troponin's. Her potassium is 3.2. We will replace the potassi um. I will get a nuclear stress test as patient reports she has not had a tress test in several years . She did have a transthoracic echocardiogram in 2016, which showed an EF of 65% and systolic functi on was low normal. The patient also does report that the chest pressure is worse with exertion and s he does develop shortness of breath, that this has been occurring for the past year. She reports bhargavi t the pressure lasts for approximately 1 hour and subsides with rest. 3. Hypokalemia. The patient does have a potassium of 3.2. I will give her 40 mEq of potassium, rep eat a BMP in the a.m. 4. Urinary tract infection. The patient does appear to have a urinary tract infection. The patient was given a dose of ceftriaxone in the emergency room. I will continue her on ceftriaxone 1 g daily . 5. Hypertension. She will continue on lisinopril 40 mg p.o. daily. She will continue on amlodipine and hydrochlorothiazide as previously prescribed. 6. Hyperlipidemia. I will continue on her 40 of atorvastatin p.o. daily. 7. Gastroesophageal reflux disease. The patient will continue on omeprazole 20 mg p.o. daily. 8. History of transient ischemic attack. We will continue her aspirin and atorvastatin as previousl y prescribed. 9. Diabetes. I will place her on lispro sliding scale with Accu-Cheks a.c. I will hold her metform in. 10. FEN: She can have a consistent carb diet. 11. Code status: She is a full code. 12. DVT prophylaxis: We will place her Lovenox subcu. TIME SPENT: Time spent on admission was 60 minutes, greater than half that time was spent at the bed side reviewing events leading thus far to her hospitalization, performing my physical exam, and revie wing my plan of care. I have discussed this my with my attending, Dr. Julián Wilde; he is in agreement with my plan. GAYE HENDERSON, WILMA [id number]/[facility] #: [id number]
[2018-10-20 06:53] LABS: BUN/Creatinine Ratio 20.7 (8-20); Calcium 8.5 mg/dL (8.6-10.3); EGFR African American 77.2 (>60); EGFR Non-African American 63.8 (>60); HDL Cholesterol 31.2 mg/dL; Potassium 3.4 mmol/L (3.5-5.0)
[2018-10-20] MEDS: Insulin LISPRO* 1 UNITS UNIT SUBCUT SCH ×3 (08:44→16:33)
[2018-10-20] MEDS ORDERED: Aspirin EC TAB* 81 MG TAB.EC PO SCH (09:00)
[2018-10-20] MEDS ORDERED: amLODIPine TAB* 5 MG PO SCH (09:00)
[2018-10-20] MEDS ORDERED: Gabapentin CAP(*) 100 MG PO SCH (09:00)
[2018-10-20] MEDS ORDERED: Lisinopril TAB* 10 MG PO SCH (09:00)
[2018-10-20] MEDS ORDERED: Pantoprazole TAB * 40 MG TAB PO SCH (09:00)
[2018-10-20 09:19] VITALS: BP 141/71
[2018-10-20] MEDS ORDERED: Potassium Chlor TAB* 20 MEQ TAB.ER PO ONE (10:30)
[2018-10-20] MEDS ORDERED: Regadenoson* 0.4 MG/5 ML SYRINGE ONE (10:44)
[2018-10-20 15:36] LABS: BUN/Creatinine Ratio 17.1 (8-20); Calcium 9.2 mg/dL (8.6-10.3); EGFR African American 82.7 (>60); EGFR Non-African American 68.3 (>60); Potassium 3.6 mmol/L (3.5-5.0)
[2018-10-20] MEDS ORDERED: cefTRIAXone(*) 1 GM in NS 0.9% 50 ML* 50 ML IVPB SCH (18:00)
[2018-10-20] MEDS ORDERED: Atorvastatin* 10 MG TAB PO SCH (21:00)
--- NOTE | 2018-10-21 03:12 | DS ---
CC: Dr. Lopez * DISCHARGE SUMMARY: DATE OF ADMISSION: 10/19/18 DATE OF DISCHARGE: 10/20/18 ATTENDING PHYSICIAN: Dr. Suzan Bueno * (dictated by LYLY Hickey) PRIMARY CARE PROVIDER: Dr. Lopez PRIMARY DIAGNOSES: 1. Benign paroxysmal positional vertigo. 2. Noncardiac chest pain. SECONDARY DIAGNOSES: 1. Hypertension. 2. Diabetes mellitus type 2. 3. Benign paroxysmal positional vertigo. 4. History of transient ischemic attack. 5. Hyperlipidemia. STUDIES WHILE INPATIENT: EKG on 10/19/18, normal sinus rhythm, rate 95 beats per minute. Normal axis, no ST elevations or depressions. No T-wave inversions. Chest x-ray on 10/19/18, impression: No active cardiopulmonary disease is noted. Brain MRI on 10/19/18, impression: Stable nonspecific white matter changes. Nuclear medicine stress test on 10/20/18, impression: 1. No evidence for stress induced myocardial ischemia or presence of an infarct. 2. Normal left ventricular wall motion and ejection fraction: Assessment: Low risk based on nuclear portion. PERTINENT LABORATORY DATA: White blood cell count 9.1 on admission, potassium 3.2 at admission then 3.6 at day of discharge. Troponin is negative x3. DISCHARGE MEDICATIONS: 1. Meclizine 25 mg p.o. t.i.d. p.r.n. 2. Ibuprofen 800 mg p.o. q.8 hours p.r.n. pain. Continued home medications: 1. Lisinopril 40 mg p.o. daily. 2. Acetaminophen 1000 mg p.o. q.8 hours p.r.n. pain. 3. Amlodipine 10 mg p.o. daily. 4. Gabapentin 100 to 200 mg p.o. b.i.d. 5. Metformin 500 mg p.o. q.p.m. 6. Omeprazole 20 mg p.o. daily. 7. Aspirin 81 mg p.o. daily. 8. Atorvastatin 10 mg p.o. daily. HISTORY OF PRESENT ILLNESS/HOSPITAL COURSE: Mary Perdomo is a 73-year-old white female with past medical history of prior TIA, diabetes mellitus, hypertension, and history of benign positional vertigo who presented to the emergency department with dizziness, feeling like the room spinning on . For further information, please see H and P from 10/19/18 dictated by Gaye Henderson NP. During her stay, she was found to have continued episodes of vertigo, however, they lasted less than 1 minute. According to the patient, they are always associated with nausea but she never vomited. She did receive meclizine during her hospitalization. CVA was ruled out given that this was necessary due to history of TIA. Additionally, the patient presented with left-sided chest pressure which has been occurring intermittently according to the patient. Stress test was low risk. Additionally, the patient was found to have an abnormal urinalysis, however, urine culture was negative. She did receive ceftriaxone, however, this was discontinued after urine culture was found to be negative. On day of discharge, the patient feels improved. Her frequency of dizziness is far more infrequent and more tolerable and resolved more quickly. She does mention that she continues to feel chest heaviness and explains that this occurs intermittently and then usually resolves on its own. She denies recent heavy lifting or exertion. She denies difficulty breathing, racing heart rate, radiation of pain, abdominal pain, nausea, vomiting, headaches. While the patient was hospitalized she was treated with lispro sliding scale for her diabetes and carbohydrate consistent diet. Her hypertension was treated with by continuing her home lisinopril and amlodipine and hydrochlorothiazide. Her home omeprazole was continued for her treatment of her GERD and for treatment of her prior history of TIA, her home aspirin and statin were continued. REVIEW OF SYSTEMS: An 11-point review of systems was completed and all pertinent positives and negatives are above in the HPI. All other systems are negative. PHYSICAL EXAMINATION: General: Obese, white female lying upright in hospital bed, appearing comfortable in no acute distress. Head: Normocephalic, atraumatic. Eyes: PERRL. Sclerae anicteric. EOMI. ENT: Mucous membranes moist. Neck: Supple without JVD. Chest: Regular rate and rhythm without murmurs, rubs, or gallops. Reproducible chest pain to left chest in midclavicular line approximately 3rd to 4th intercostal space. Lungs: Clear to auscultation throughout. Abdomen: Normoactive bowel sounds x4 quadrants. The abdomen is soft, nontender, nondistended. Extremities: No clubbing, edema or cyanosis. Neuro: The patient is alert and oriented x3. No focal deficits. Cranial nerves II through XII were grossly intact. Skin: Skin is warm, dry and intact. DISCHARGE PLAN: Diet: Carbohydrate consistent diet. Activity: The patient may return to normal activity. The patient is advised to return to the emergency department if feelings of dizziness do not improve despite taking meclizine, if she finds herself vomiting and cannot keep down liquids or if she has excruciating chest pain or difficulty breathing. She is advised to follow up with her primary care provider regarding this hospitalization and additionally regarding her chest pain which is I believe is noncardiac. I believe it appears to be musculoskeletal especially considering the reproducibility on palpation. The patient was advised to take ibuprofen but preferably not 3 times per day given that she is taking aspirin. She is advised to come to emergency department if she notes blood in her stool. The patient is advised to take meclizine for her vertigo. For treatment of prior TIA, she is to continue her home aspirin and statin. For treatment of her hypertension, she is to continue her home lisinopril, amlodipine and hydrochlorothiazide. For treatment of her diabetes, she is to continue her home metformin. For treatment of her GERD, she is to continue her home omeprazole. It is recommended that at followup with her primary care provider, she will have a repeat BMP to evaluate. If her hypokalemia does continue, it would be recommended that she discontinue her thiazide. CONDITION ON DISCHARGE: Stable. DISPOSITION: Home. TIME SPENT: Approximately 50 minutes was spent on this discharge, approximately half of this time was spent at bedside. LYLY HICKEY [id number]/[facility] #: [id number] CAMRYN
== END 2018-10-20 18:03 | disposition home or self-care (01) ==
LOC: ED 14:30 → MEDTELE 21:26
PROVIDERS: ADMIT Internal Medicine; ATTEND Internal Medicine
DX: H81.10 Benign paroxysmal vertigo, unspecified ear (principal); R07.89 Other chest pain; I10 Essential (primary) hypertension; E11.9 Type 2 diabetes mellitus without complications; Z86.73 Personal history of transient ischemic attack (TIA), and cerebral infarction without residual deficits; E78.5 Hyperlipidemia, unspecified; Z79.82 Long term (current) use of aspirin; E66.9 Obesity, unspecified; Z87.891 Personal history of nicotine dependence; Z87.442 Personal history of urinary calculi; N39.0 Urinary tract infection, site not specified
CPT/HCPCS: 36415; 70551; 71045; 78452; 80048; 80053; 80061; 81003; 81015; 83036; 84484; 85025; 85610; 87086; 93005; 93017; 96365; 96366; 96372; 99284; A9270-GY; A9502; G0378; J0696; J1650; J2785

== ENCOUNTER 2021-02-15 03:46 | Observation (INO) ==
[2021-02-15] MEDS ORDERED: NS 0.9% 1000 ml BAG 1,000 ML IV ONE (04:25)
[2021-02-15 05:25] LABS: ABS Basophils 0.1 10^3/ul (0-0.2); ABS Eosinophils 0.1 10^3/ul (0-0.6); ABS Lymphocytes 1.8 10^3/ul (1.0-4.8); ABS Monocytes 0.6 10^3/ul (0-0.8); ABS Neutrophils 4.5 10^3/ul (1.5-7.7); Eosinophil % 1.3 %; Hematocrit 40 % (35-47); Hemoglobin 13.7 g/dL (12.0-16.0); Mean Corpuscular HGB Conc 34 g/dL (31-36); Mean Corpuscular Hemoglobin 30 pg (27-31); Mean Corpuscular Volume 86 fL (80-97); Mean Platelet Volume 7.5 fL (7.4-10.4); Platelet Count 321 10^3/uL (150-450); Red Blood Count 4.62 10^6 /uL (3.70-4.87); Red Cell Distribution Width 13 % (10-15); White Blood Count 7.1 10^3/uL (3.5-10.8)
[2021-02-15 05:27] LABS: Urine Appearance Cloudy; Urine Bilirubin Negative (Negative); Urine Blood Negative (Negative); Urine Color Yellow; Urine Glucose 3+(>=500 mg/dL) (Negative); Urine Ketones Negative (Negative); Urine Nitrite Negative (Negative); Urine Protein Negative (Negative); Urine Specific Gravity 1.025 (1.002-1.030); Urine Urobilinogen Negative (Negative)
[2021-02-15 05:33] LABS: Urine Bacteria Absent (Absent); Urine Red Blood Cell 1+(3-5/hpf) (Absent); Urine Squamous Epithelial Cell Present (Absent); Urine White Blood Cell 2+(11-20/hpf) (Absent)
[2021-02-15 05:45] LABS: Albumin 4.5 g/dL (3.2-5.2); Albumin/Globulin Ratio 1.3 (1-3); Calcium 9.6 mg/dL (8.6-10.3); EGFR African American 56.8 (>60); EGFR Non-African American 46.9 (>60); Globulin 3.6 g/dL (2-4); Magnesium 2.3 mg/dL (1.9-2.7); Total Bilirubin 0.5 mg/dL (0.2-1.0); Total Protein 8.1 g/dL (6.4-8.9)
[2021-02-15 05:47] LABS: Troponin I 0.01 ng/mL (<0.03)
[2021-02-15 06:08] LABS: TSH Ultra Thyroid Stim Horm 0.43 mcIU/mL (0.34-5.60)
[2021-02-15] MEDS ORDERED: hydrALAZINE 20 mg/ml 1 ML Vial IV IV SLOW PU ONE (06:35)
[2021-02-15] MEDS ORDERED: Lidocaine PATCH 5% PATCH TRANSDERM ONE (06:42)
[2021-02-15 11:39] LABS: Rapid COVID-19 Molecular Undetected (Undetected)
[2021-02-15] MEDS ORDERED: Iodixanol (CONTRAST) 320 MG/ML 100 ML SDV IV ONE (13:49)
[2021-02-15] MEDS ORDERED: Dextrose 50% Syringe 50 ml 25 GM/50 ML SYRINGE IV PUSH PRN (13:58)
[2021-02-15] MEDS: Heparin 5000 UNITS/ML 1 mL VIAL SUBCUT SCH ×2 (17:46→22:02)
[2021-02-15] MEDS: Aspirin EC 81 mg TAB.EC (enteric coated) PO SCH (20:27)
[2021-02-15] MEDS ORDERED: Lidocaine Patch REMOVE PATCH PATCH OFF SCH (21:00)
[2021-02-16] MEDS: Heparin 5000 UNITS/ML 1 mL VIAL SUBCUT SCH ×2 (06:00→14:37)
[2021-02-16 06:46] LABS: EGFR African American 69.4 (>60); EGFR Non-African American 57.3 (>60); HDL Cholesterol 35.7 mg/dL; Potassium 3.9 mmol/L (3.5-5.0)
[2021-02-16] MEDS: Aspirin EC 81 mg TAB.EC (enteric coated) PO SCH (08:23)
[2021-02-16] MEDS ORDERED: Senna TAB 8.6 mg TAB PO PRN (08:33)
[2021-02-16] MEDS ORDERED: Polyethylene Glycol 3350 17 GM PACKET PO PRN (08:33)
[2021-02-16] MEDS ORDERED: Lidocaine PATCH 5% PATCH TRANSDERM SCH (09:00)
[2021-02-16 17:07] VITALS: BP 167/80
[2021-02-16] MEDS ORDERED: Lidocaine Patch REMOVE PATCH PATCH OFF SCH (21:00)
== END 2021-02-16 17:25 | disposition home or self-care (01) ==
LOC: MEDTELE 03:46 → ED 03:46 → MEDTELE 14:27
PROVIDERS: ADMIT Internal Medicine; ATTEND Internal Medicine

== ENCOUNTER 2021-07-24 07:41 | Inpatient (IN) ==
[2021-07-24] MEDS ORDERED: Ondansetron 4 mg VIAL 2 MG/ML 2 ml VIAL IV ONE (08:31)
[2021-07-24] MEDS ORDERED: Morphine 2 MG/ML SYRINGE IV ONE (08:31)
[2021-07-24] MEDS ORDERED: Lidocaine 2.5%/Prilocain 2.5% 5 GM TUBE ONE (08:49)
[2021-07-24] MEDS ORDERED: Lidocaine 2.5%/Prilocain 2.5% 5 GM TUBE TOPICAL ONE (08:55)
[2021-07-24 08:58] LABS: Urine Appearance Cloudy; Urine Bilirubin Negative (Negative); Urine Blood Negative (Negative); Urine Color Straw; Urine Glucose Negative (Negative); Urine Ketones Negative (Negative); Urine Nitrite Negative (Negative); Urine Protein Negative (Negative); Urine Specific Gravity 1.011 (1.002-1.030); Urine Urobilinogen Negative (Negative)
[2021-07-24 10:16] LABS: ABS Eosinophils 0.1 10^3/ul (0-0.6); ABS Lymphocytes 1.6 10^3/ul (1.0-4.8); ABS Monocytes 0.5 10^3/ul (0-0.8); ABS Neutrophils 3.9 10^3/ul (1.5-7.7); Hematocrit 35 % (35-47); Lymphocyte % 26.3 %; Mean Corpuscular HGB Conc 34 g/dL (31-36); Mean Corpuscular Hemoglobin 31 pg (27-31); Mean Corpuscular Volume 89 fL (80-97); Mean Platelet Volume 7.4 fL (7.4-10.4); Platelet Count 315 10^3/uL (150-450); Red Blood Count 3.92 10^6 /uL (3.70-4.87); Red Cell Distribution Width 13 % (10-15); White Blood Count 6.2 10^3/uL (3.5-10.8)
[2021-07-24 10:43] LABS: ALT 32 U/L (7-52); Albumin 4.5 g/dL (3.2-5.2); Albumin/Globulin Ratio 1.6 (1-3); Alkaline Phosphatase 53 U/L (35-149); Blood Urea Nitrogen 29 mg/dL (6-24); CO2 Carbon Dioxide 25 mmol/L (22-32); Calcium 9.5 mg/dL (8.6-10.3); Chloride 102 mmol/L (101-111); Globulin 2.8 g/dL (2-4); Glucose 140 mg/dL (70-100); Sodium 136 mmol/L (135-145); Total Protein 7.3 g/dL (6.4-8.9)
[2021-07-24] MEDS ORDERED: Iodixanol (CONTRAST) 320 MG/ML 100 ML SDV IV ONE (11:04)
[2021-07-24 11:36] LABS: Activated Partial Thrombo Time 28.3 seconds (26.0-38.0); INR 1.02 (0.86-1.15)
[2021-07-24 11:37] LABS: Anion Gap 9 mmol/L (2-11)
[2021-07-24] MEDS ORDERED: LORazepam 2 mg VIAL 1 ml IV PUSH ONE (11:57)
[2021-07-24] MEDS ORDERED: Lorazepam PYXIS KEY PRN (11:57)
[2021-07-24] MEDS ORDERED: oxyCODONE SR 10 mg TAB PO ONE (13:07)
[2021-07-24 13:20] LABS: Potassium Redraw 4.3 mmol/L (3.5-5.0)
[2021-07-24 14:14] LABS: Erythrocyte Sed Rate 17 mm/Hr (0-29)
[2021-07-24] MEDS ORDERED: Dextrose 50% Syringe 50 ml 25 GM/50 ML SYRINGE IV PUSH PRN (14:53)
[2021-07-24] MEDS ORDERED: Ondansetron 4 mg VIAL 2 MG/ML 2 ml VIAL IV PRN (18:03)
[2021-07-24] MEDS: Enoxaparin 40 MG/0.4 ML SYR SUBCUT SCH (18:54)
[2021-07-25] MEDS: HYDROcodone/ACETAMIN 5/325 mg TAB PO PRN ×3 (06:15→16:11)
[2021-07-25] MEDS: Aspirin EC 81 mg TAB.EC (enteric coated) PO SCH (08:30)
[2021-07-25] MEDS ORDERED: Cholecalciferol (VIT D3) 50,000 UNIT CAP (NF) PO SCH (09:00)
[2021-07-25] MEDS: Enoxaparin 40 MG/0.4 ML SYR SUBCUT SCH (16:15)
[2021-07-26] MEDS: HYDROcodone/ACETAMIN 5/325 mg TAB PO PRN ×2 (01:27→08:58)
[2021-07-26] MEDS: Aspirin EC 81 mg TAB.EC (enteric coated) PO SCH (08:58)
[2021-07-26 10:18] LABS: Calcium 9.5 mg/dL (8.6-10.3); Potassium 4.1 mmol/L (3.5-5.0)
[2021-07-26] MEDS ORDERED: HYDROcodone/ACETAMIN 5/325 mg TAB PO PRN (12:10)
[2021-07-26] MEDS: Enoxaparin 40 MG/0.4 ML SYR SUBCUT SCH (16:38)
[2021-07-26] MEDS: Lidocaine PATCH 5% PATCH TRANSDERM SCH (19:15)
[2021-07-27] MEDS: Aspirin EC 81 mg TAB.EC (enteric coated) PO SCH (07:54)
[2021-07-27] MEDS: Lidocaine PATCH 5% PATCH TRANSDERM SCH (07:54)
[2021-07-27] MEDS ORDERED: Magnesium Hydroxide LIQ 30 ML UDC PO PRN (08:13)
[2021-07-27] MEDS: Polyethylene Glycol 3350 17 GM PACKET PO SCH (09:19)
[2021-07-27] MEDS: Enoxaparin 40 MG/0.4 ML SYR SUBCUT SCH (17:41)
[2021-07-28 05:54] LABS: ABS Eosinophils 0.1 10^3/ul (0-0.6); ABS Lymphocytes 2.3 10^3/ul (1.0-4.8); ABS Monocytes 0.6 10^3/ul (0-0.8); ABS Neutrophils 2.5 10^3/ul (1.5-7.7); Eosinophil % 1.6 %; Hematocrit 34 % (35-47); Hemoglobin 11.6 g/dL (12.0-16.0); Lymphocyte % 41.2 %; Mean Corpuscular HGB Conc 34 g/dL (31-36); Mean Corpuscular Hemoglobin 31 pg (27-31); Mean Corpuscular Volume 90 fL (80-97); Mean Platelet Volume 7.4 fL (7.4-10.4); Platelet Count 291 10^3/uL (150-450); Red Blood Count 3.78 10^6 /uL (3.70-4.87); Red Cell Distribution Width 13 % (10-15); White Blood Count 5.5 10^3/uL (3.5-10.8)
[2021-07-28 06:20] LABS: Calcium 9.4 mg/dL (8.6-10.3); Potassium 4.1 mmol/L (3.5-5.0); eGFR CKD-EPI 68.1 (>60)
[2021-07-28] MEDS: Lidocaine PATCH 5% PATCH TRANSDERM SCH (10:28)
[2021-07-28] MEDS: Polyethylene Glycol 3350 17 GM PACKET PO SCH (10:28)
[2021-07-28] MEDS: Aspirin EC 81 mg TAB.EC (enteric coated) PO SCH (10:28)
[2021-07-28] MEDS: HYDROcodone/ACETAMIN 5/325 mg TAB PO PRN (11:32)
[2021-07-28 11:57] VITALS: BP 168/81
== END 2021-07-28 14:00 | disposition home or self-care (01) | DRG 552 ==
LOC: ED 07:41 → EDHOLD 07:41 → MED 17:27 → SUATTDRO 07-25 15:02
PROVIDERS: ADMIT Nurse Practitioner Family; ATTEND Internal Medicine

== ENCOUNTER 2022-07-12 04:25 | Observation (INO) ==
[2022-07-12] MEDS ORDERED: HYDROcodone/ACETAMIN 5/325 mg TAB PO ONE ×2 (06:34→11:58)
[2022-07-12 08:54] LABS: ABS Basophils 0.1 10^3/ul (0-0.2); ABS Lymphocytes 1.7 10^3/ul (1.0-4.8); ABS Monocytes 0.9 10^3/ul (0-0.8); ABS Neutrophils 7.7 10^3/ul (1.5-7.7); Eosinophil % 0.3 %; Hematocrit 32 % (35-47); Hemoglobin 10.3 g/dL (12.0-16.0); Lymphocyte % 16.3 %; Mean Corpuscular HGB Conc 32 g/dL (31-36); Mean Corpuscular Hemoglobin 28 pg (27-31); Mean Corpuscular Volume 88 fL (80-97); Platelet Count 377 10^3/uL (150-450); Red Blood Count 3.66 10^6 /uL (3.70-4.87); Red Cell Distribution Width 14 % (10-15); White Blood Count 10.4 10^3/uL (3.5-10.8)
[2022-07-12 09:34] LABS: Albumin 4.3 g/dL (3.2-5.2); Albumin/Globulin Ratio 1.4 (1-3); Calcium 9.4 mg/dL (8.6-10.3); Creatinine, Serum 1.03 mg/dL (0.51-0.95); Potassium 4.1 mmol/L (3.5-5.0); Total Bilirubin 0.5 mg/dL (0.2-1.0); Total Protein 7.3 g/dL (6.4-8.9)
[2022-07-12 10:12] LABS: Urine Appearance Cloudy; Urine Bilirubin Negative (Negative); Urine Blood 1+ (Negative); Urine Color Yellow; Urine Glucose Negative (Negative); Urine Ketones Negative (Negative); Urine Nitrite Negative (Negative); Urine Protein 2+(100 mg/dL) (Negative); Urine Specific Gravity 1.019 (1.002-1.030); Urine Urobilinogen Negative (Negative)
[2022-07-12 10:26] LABS: Urine Bacteria Absent (Absent); Urine Red Blood Cell Trace(0-2/hpf) (Absent); Urine Squamous Epithelial Cell Present (Absent); Urine White Blood Cell 1+(6-10/hpf) (Absent)
[2022-07-12 11:22] LABS: High Sensitivity Troponin 1 Hr 214 pg/mL (<15)
[2022-07-12] MEDS ORDERED: Iodixanol (CONTRAST) 320 MG/ML 100 ML SDV IV ONE (11:33)
[2022-07-12 12:59] LABS: C Reactive Protein 60.6 mg/L (<8.01)
[2022-07-12] MEDS: Enoxaparin 40 MG/0.4 ML SYR SUBCUT SCH (21:42)
[2022-07-13 06:43] LABS: Hematocrit 31 % (35-47); Mean Corpuscular HGB Conc 33 g/dL (31-36); Mean Corpuscular Hemoglobin 29 pg (27-31); Mean Corpuscular Volume 88 fL (80-97); Red Cell Distribution Width 14 % (10-15); White Blood Count 7.6 10^3/uL (3.5-10.8)
[2022-07-13 06:44] LABS: ABS Basophils 0.1 10^3/ul (0-0.2); ABS Eosinophils 0.1 10^3/ul (0-0.6); ABS Lymphocytes 1.8 10^3/ul (1.0-4.8); ABS Monocytes 0.7 10^3/ul (0-0.8); ABS Neutrophils 4.9 10^3/ul (1.5-7.7); Eosinophil % 0.7 %; Lymphocyte % 23.8 %
[2022-07-13 07:19] LABS: Calcium 9.2 mg/dL (8.6-10.3); Potassium 3.7 mmol/L (3.5-5.0)
[2022-07-13 08:21] LABS: Platelet Count 338 10^3/uL (150-450)
[2022-07-13] MEDS: Polyethylene Glycol 3350 17 GM PACKET PO SCH (09:59)
[2022-07-13] MEDS: Enoxaparin 40 MG/0.4 ML SYR SUBCUT SCH (21:52)
[2022-07-14] MEDS: Polyethylene Glycol 3350 17 GM PACKET PO SCH (09:07)
[2022-07-14 11:22] VITALS: BP 133/64
== END 2022-07-14 13:50 ==
LOC: ED 04:25 → EDHOLD 04:25 → MEDTELE 07-13 15:26
PROVIDERS: ADMIT Internal Medicine; ATTEND Internal Medicine